=== PATIENT | male | born 1950 | race Caucasian/White ===

== ENCOUNTER 2018-06-24 22:06 | Observation (INO) | payer MEDICARE ==
[~2018-06-24] VITALS: Ht 170.2 cm; Wt 86.8 kg
[~2018-06-24 22:06] MED LIST: ASPIRIN81 MG PO; CLOPIDOGREL75 MG PO; CRESTOR40 MG PO; CURCUMIN1 GM PO; DAILY VITAMIN1 EAC3 PO; GLIMEPIRIDE4 MG PO; INVOKANA PO; JANUMET XR 50-1 EAC1 PO; LANTUS100 UNITS/ SQ; LOVAZA1 GM PO; METOPROLOL TART50 MG PO; RAMIPRIL10 MG PO
[2018-06-24 22:43] LABS: BASOPHILS # (AUTO) 0.1 (0.0-0.1); BASOPHILS % 0.3 % (0.0-1.0); EOSINOPHILS # (AUTO) 0.5 (0.0-0.4); HEMATOCRIT 48.5 % (38.2-49.6); HEMOGLOBIN 16.2 g/dL (14.0-18.0); LYMPHOCYTES # (AUTO) 1.5 (1.0-3.2); LYMPHOCYTES % 10.2 % (18.0-39.1); MEAN CORPUSCULAR HEMOGLOBIN 29.8 pg (28-32); MEAN CORPUSCULAR HGB CONC 33.4 g/dL (31-35); MEAN CORPUSCULAR VOLUME 89.2 fL (81-99); MONOCYTES # (AUTO) 1.1 (0.2-0.8); MONOCYTES % 7.2 % (4.4-11.3); NEUTROPHILS # (AUTO) 11.9 (2.1-6.9); NEUTROPHILS % 78.6 % (38.7-80.0); PLATELET COUNT 247 x10e3/uL (140-360); RED BLOOD COUNT 5.44 x10e6/uL (4.3-5.7); RED CELL DISTRIBUTION WIDTH 13.9 % (11.7-14.4)
[2018-06-24 23:00] LABS: ALBUMIN 4.2 g/dL (3.5-5.0); ALBUMIN/GLOBULIN RATIO 1.4 (0.8-2.0); ANION GAP 19.3 mmol/L (8-16); CALCIUM 10.2 mg/dL (8.4-10.2); CREATININE, SERUM 1.86 mg/dL (0.72-1.25); POTASSIUM 4.3 mmol/L (3.5-5.1)
[2018-06-24] MEDS: SODIUM CHLORIDE 0.9% 1000ML 1,000 ML IV SCH (23:24)
--- NOTE | 2018-06-24 23:40 | NUR ---
REPORT CALLED TO MÓNICA DONALD
[2018-06-24] MEDS ORDERED: TERAZOSIN HCL1 MG PO (23:49)
[2018-06-24] MEDS ORDERED: NITROGLYCERIN0.4 MG SL (23:49)
[2018-06-24] MEDS ORDERED: TRESIBA SC (23:49)
[2018-06-24] MEDS ORDERED: METOPROLOL SUCC50 MG PO (23:49)
[2018-06-25] VITALS (8 sets, daily range): BP systolic 108–150; BP diastolic 55–80
[2018-06-25] MEDS ORDERED: IOPAMIDOL 370 MG/ML 200 ML INFUS..BTL INJ ONE (00:09)
[2018-06-25] MEDS ORDERED: SODIUM CHLORIDE 0.9% 50ML 50 ML ONE (00:09)
--- NOTE | 2018-06-25 00:47 | NUR ---
received pt from ER to room 208, AAOx4, resp even and unlabored, on o2 at 2L via NC, no c/o pain or discomfort, able to verbalize needs, small circular abrasion to anterior right ankle with light center with no drainage or bleeding left ROCHELLE, non blanchable redness to right hallux area on right foot, family at bedside, 20G IV to RAC with NS @ 100, bed in lowest and locked position and call light placed in reach, bed alarm on
--- NOTE | 2018-06-25 01:33 | Diagnostic Imaging Report ---
EXAM: CT Abdomen and Pelvis WITH contrast INDICATION: diarrhea for 2 weeks COMPARISON: None. TECHNIQUE: Abdomen and pelvis were scanned utilizing a multidetector helical scanner from the lung base to the pubic symphysis after administration of IV contrast. Coronal and sagittal reformations were obtained. Routine protocol was performed. Scan was performed when during portal venous phase. IV CONTRAST: 100 mL of Isovue 370 ORAL CONTRAST: Water COMPLICATIONS: None RADIATION DOSE: Total DLP: 639.5 mGy*cm Estimated effective dose: (DLP x 0.015 x size factor) mSv Dose modulation, iterative reconstruction, and/or weight based adjustment of the mA/kV was utilized to reduce the radiation dose to as low as reasonably achievable. FINDINGS: LINES and TUBES: None. LOWER THORAX: Calcified mediastinal and hilar nodes likely related to prior granulomatous disease. Right lower lobe calcified granuloma. HEPATOBILIARY: No focal hepatic lesions. No biliary ductal dilation. GALLBLADDER: No radio-opaque stones or sludge. No wall thickening. SPLEEN: No splenomegaly. PANCREAS: No focal masses or ductal dilatation. ADRENALS: No adrenal nodules KIDNEYS/URETERS: Kidneys enhance symmetrically. No hydronephrosis. No cystic or solid mass lesions. No stones. GI TRACT: No abnormal distention, wall thickening, or evidence of bowel obstruction. Liquid contents within the colon in keeping with history of diarrhea. No colonic wall thickening or pericolonic stranding. Appendix is normal. PELVIC ORGANS/BLADDER: Unremarkable. LYMPH NODES: No lymphadenopathy. VESSELS: There is mild atherosclerotic disease in the aorta and major arterial branches. PERITONEUM / RETROPERITONEUM: No free air or fluid. BONES: Unremarkable. SOFT TISSUES: There is a fat containing right inguinal hernia. IMPRESSION: 1. Liquid contents within the colon in keeping with history of diarrhea. 2. Otherwise, no acute abnormalities. Signed by: DR. Nazario Chacon MD on 06/25/2018 1:30 AM
[2018-06-25 05:29] LABS: BASOPHILS % 0.3 % (0.0-1.0); EOSINOPHILS # (AUTO) 0.4 (0.0-0.4); EOSINOPHILS % 3.5 % (0.0-6.0); HEMATOCRIT 41.6 % (38.2-49.6); HEMOGLOBIN 14.1 g/dL (14.0-18.0); LYMPHOCYTES # (AUTO) 1.2 (1.0-3.2); LYMPHOCYTES % 9.9 % (18.0-39.1); MEAN CORPUSCULAR HEMOGLOBIN 29.9 pg (28-32); MEAN CORPUSCULAR HGB CONC 33.9 g/dL (31-35); MEAN CORPUSCULAR VOLUME 88.3 fL (81-99); MONOCYTES # (AUTO) 1.1 (0.2-0.8); NEUTROPHILS # (AUTO) 9.2 (2.1-6.9); NEUTROPHILS % 76.7 % (38.7-80.0); PLATELET COUNT 214 x10e3/uL (140-360); RED BLOOD COUNT 4.71 x10e6/uL (4.3-5.7); RED CELL DISTRIBUTION WIDTH 13.6 % (11.7-14.4)
[2018-06-25 05:49] LABS: ALBUMIN 3.5 g/dL (3.5-5.0); ALBUMIN/GLOBULIN RATIO 1.3 (0.8-2.0); ANION GAP 16.6 mmol/L (8-16); CALCIUM 9.2 mg/dL (8.4-10.2); CREATININE, SERUM 1.57 mg/dL (0.72-1.25); POTASSIUM 4.6 mmol/L (3.5-5.1)
[2018-06-25 06:01] LABS: CREATINE KINASE MB 3.3 ng/mL (0-5.0)
[2018-06-25 06:02] LABS: BILIRUBIN,URINE NEGATIVE (NEGATIVE); CLARITY,URINE CLEAR (CLEAR); COLOR,URINE YELLOW (YELLOW); KETONES,URINE NEGATIVE (NEGATIVE); LEUKOCYTE ESTERASE ,URINE NEGATIVE (NEGATIVE); NITRITE,URINE NEGATIVE (NEGATIVE); PROTEIN,URINE DIPSTICK NEGATIVE (NEGATIVE); URINE UROBILINOGEN 0.2 mg/dL (0.2 - 1)
[2018-06-25 06:04] LABS: EPITHELIAL CELLS,URINE RARE /LPF; WBC,URINE (MAN) 0-5 /HPF (0-5)
[2018-06-25] MEDS ORDERED: DEXTROSE 50% SYRINGE 50 ML IV PRN (08:45)
[2018-06-25] MEDS: SODIUM CHLORIDE 0.9% 1000ML 1,000 ML IV SCH ×2 (08:50→19:15)
[2018-06-25] MEDS ORDERED: NITROGLYCERIN 0.4 MG SUBL SL PRN (10:30)
--- NOTE | 2018-06-25 10:58 | History and Physical ---
CHIEF COMPLAINT: Generalized weakness and diarrhea. HISTORY OF PRESENT ILLNESS: A 68-year-old white man presents to [facility] emergency room with a 1-day history of nausea, vomiting and diarrhea. The patient states he had similar symptoms 5 days prior to admission, but they resolved spontaneously. The patient states that on the day of admission he did participate in strenuous physical activity, and may not have consumed enough calories. The patient called emergency medical services because he had symptomatic hypoglycemia according to the family members. The patient's lactic acid level was elevated at 24.5, but he is on metformin. BUN and Creatinine on admission was 25 and 1.86 respectively. Repeat BUN and creatinine this morning is 26 and 1.57 respectively, but he is receiving intravenous fluids. The patient was found to have a white blood cell count of 15,000 with 78% segmented neutrophils on admission. Today, it is 12,000 with 76% segmented neutrophils. The CT of the abdomen and pelvis with contrast in the emergency room revealed liquid contents within the colon in keeping with the history of diarrhea, otherwise unremarkable. The patient states he did receive the influenza vaccine this evening. The patient states that a few days ago he did experience body aches, as well as chest congestion and cough. REVIEW OF SYSTEMS GENERAL: Weight has been stable. States he did have fever and chills and body aces the past few days. HEENT: No headaches. No double vision. CARDIOVASCULAR/RESPIRATORY: Slight nonproductive cough in the last few days. No chest pain or tightness. No shortness of breath. GI: The patient had nausea, vomiting and diarrhea on the day of admission, and also 5 days prior to admission. : No UTI or BPH symptoms. NEUROMUSCULAR: No limb weakness, numbness. ALLERGIES: NO KNOWN DRUG ALLERGIES. HOME MEDICATIONS 1. Aspirin 81 mg daily. 2. Glimepiride 4 mg a day. 3. Metoprolol succinate 50 mg daily. 4. Multivitamins once daily. 5. Nitroglycerin 0.4 mg one sublingual every 5 minutes p.r.n. chest pain. 6. [place]-3 fish oil 1 gm daily. 7. Verapamil 10 mg daily. 8. Rosuvastatin 40 mg daily. 9. Sitagliptin per metformin 50 per 1000 mg 2 pills daily. 10. Terazosin 1 mg daily. 11. Tarceva insulin 50 units daily. PAST MEDICAL HISTORY 1. Type 2 diabetes mellitus. 2. 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 3. Dyslipidemia. 4. Vitamin D deficiency. 5. BPH. 6. Hypertensive heart disease. 7. Coronary artery disease (history of coronary stent placement on 4 different occasions). SURGICAL HISTORY 1. Left knee surgery at age 18. 2. Coronary stent placement on 4 separate occasions (2004, 2008, 2010, and 2016). FAMILY HISTORY: Both parents had congestive heart failure. The patient has coronary artery disease. SOCIAL HISTORY: The man is and lives with his . 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 No history of tobacco or alcohol use. PHYSICAL EXAMINATION GENERAL: He is awake, alert and fully oriented. Very pleasant man. His is at bedside. VITALS: Height is 5 feet 7 inches, weight 180 pounds, BMI is 30. Blood pressure is 120/72, pulse 82, respiratory rate 18, temperature 97.1, oxygen saturation 95% on room air. INTEGUMENT: Skin is warm and dry. No pallor, jaundice or diaphoresis. HEENT: Anicteric sclerae with dry mucous membranes. NECK: Supple. CARDIOVASCULAR: Tachycardic rate and regular rhythm. LUNGS: The patient has faint crackles in the bibasilar area. ABDOMEN: Benign. Normal bowel sounds. Nontender. EXTREMITIES: No edema or deformities. NEURO: Intact. IMPRESSION 1. Symptomatic hypoglycemia, resolved. 2. Sepsis secondary to gastroenteritis. 3. Viral syndrome, perhaps influenza. 4. Krwkt-xl-rpogooo renal failure. 5. Type 2 diabetes mellitus. 6. Coronary artery disease. 7. Lactic acidosis likely secondary to metformin use. PLAN 1. Stop metformin for suspicion of lactic acidosis. 2. Will stop ZAMZAM inhibitor at this time since the patient has kfewt-rz-rbizuvq renal failure. 3. Intravenous fluids. 4. Follow renal function. 5. Will order nasal swab to assess for influenza infection. 6. Order chest x-ray. 7. Intravenous antibiotics, namely ceftriaxone. 8. Will as the patient to stop sulfourea, namely glimepiride since this can cause symptomatic hypoglycemia in people over 65 years of age. I spent 45 minutes in the care of this patient. Job#: [id number] [facility] SYSTEMSunita
[2018-06-25] MEDS: INSULIN REGULAR, HUMAN 100 UNIT/1 ML 3ML VIAL SQ SCH ×3 (11:30→20:50)
[2018-06-25] MEDS: CEFTRIAXONE SOD 1 GM/NS 50 ML 50 ML IV SCH ×2 (11:34→22:41)
--- NOTE | 2018-06-25 12:31 | Diagnostic Imaging Report ---
Examination: Single AP view of the chest. COMPARISON: CT abdomen and pelvis earlier 06/25/2018 INDICATION: Cough DISCUSSION: Lungs are well-inflated. No focal consolidation, pleural effusion, or pneumothorax. Cardiomediastinal contour and pulmonary vasculature are within normal limits for portable, AP technique. No acute osseous abnormality. Probable posttraumatic deformity of the left clavicle partially visualized. IMPRESSION: 1. No acute cardiopulmonary abnormalities. Signed by: Dr. Juan Luis Hart M.D. on 06/25/2018 12:27 PM
--- NOTE | 2018-06-25 13:07 | NUR ---
ASSESSMENT: Spiritual concern Pt thankful to God and family. Pt's at bedside. Pt states he is grateful for his 's and daughter's help during illness. Intervention: Provided hospitality, empathic listening and prayer. Provided information on how to reach slat basket maker machine, if needed. Outcome: No need to follow at this time. ASHLEY ALEGRE [employer] Spiritual Care Department O: [phone] Pager: [phone] ([phone] number calling from)
--- NOTE | 2018-06-25 15:49 | NUR ---
CASE MANAGEMENT ASSESSMENT Filer Finish to bedside to discuss plan of care with patient/family. CM/SW role and care transitions discussed. Anticipated discharge plan discussed along with duration of care. CM/SW discussed patients right to make decisions in care. CM/SW work hours given. Patient lives: with Constance Admit/Transfer: thru ED Hospital/ER visits since last admit: last hospitalization Apr 2016 when he had stent placed; 0 ED visits since then POA/Emergency contact: Constance Meyer [phone] Current/Previous Home Health: none PCP/Follow-up Care: Dr. Ware - pt advised to follow up with MD within 7 days of discharge Current/Previous DME: none Medications (referring to index hospitalization or the first time you were in the hospital) a. Were changes made in your medications when you were in the hospital on [date of index hospitalization]? n/a b. Did you understand the changes? n/a c. Were you able to obtain your new medications right away? n/a d. Were you able to take your medications like the doctor wanted you to? n/a e. Did the hospital give you an accurate, easy to understand list of medications when you left? n/a Scale of 1-10 how comfortable does patient feel with disease management in outpatient settin Other Services: none Employment Status: retired Areas of Concerns: none Referral Needs: none Education Needs: none IMM/FAJARDO given and signed (if applicable): FAJARDO Goal for discharge: home tomorrow CM/SW left business card at the bedside with contact information. Name and number was also written on the patients whiteboard. Patient verbalized understanding of discussion. CM will follow-up with ongoing discharge and transition of care needs.
[2018-06-25] MEDS ORDERED: CRESTOR 10MG PO SCH (21:00)
[2018-06-26 00:20] VITALS: BP 133/70
[2018-06-26 05:09] LABS: BASOPHILS % 0.2 % (0.0-1.0); EOSINOPHILS # (AUTO) 0.3 (0.0-0.4); EOSINOPHILS % 3.3 % (0.0-6.0); HEMOGLOBIN 12.9 g/dL (14.0-18.0); LYMPHOCYTES # (AUTO) 2.1 (1.0-3.2); LYMPHOCYTES % 24.5 % (18.0-39.1); MEAN CORPUSCULAR HEMOGLOBIN 29.5 pg (28-32); MEAN CORPUSCULAR HGB CONC 32.3 g/dL (31-35); MEAN CORPUSCULAR VOLUME 91.3 fL (81-99); MONOCYTES # (AUTO) 0.9 (0.2-0.8); MONOCYTES % 10.3 % (4.4-11.3); NEUTROPHILS # (AUTO) 5.3 (2.1-6.9); NEUTROPHILS % 61.4 % (38.7-80.0); PLATELET COUNT 198 x10e3/uL (140-360); RED BLOOD COUNT 4.38 x10e6/uL (4.3-5.7); RED CELL DISTRIBUTION WIDTH 13.9 % (11.7-14.4)
[2018-06-26 05:28] LABS: ALANINE AMINOTRANSFERASE 20 IU/L (0-55); ALBUMIN 3.3 g/dL (3.5-5.0); ALBUMIN/GLOBULIN RATIO 1.3 (0.8-2.0); ALKALINE PHOSPHATASE 73 IU/L (40-150); ANION GAP 14.5 mmol/L (8-16); BLOOD UREA NITROGEN 17 mg/dL (7-26); BUN/CREATININE RATIO 17 (6-25); CALCIUM 8.1 mg/dL (8.4-10.2); CARBON DIOXIDE 20 mmol/L (22-29); CHLORIDE 110 mmol/L (98-107); CREATININE, SERUM 1.03 mg/dL (0.72-1.25); EST GLOMERULAR FILTRATION RATE > 60 ML/MIN (60-); GLUCOSE 236 mg/dL (74-118); POTASSIUM 3.5 mmol/L (3.5-5.1); SODIUM 141 mmol/L (136-145)
[2018-06-26 06:16] VITALS: BP 134/80
[2018-06-26] MEDS ORDERED: POTASSIUM CHLORIDE 10MEQ EA PO ONE (08:00)
[2018-06-26 08:09] VITALS: BP 139/79
[2018-06-26] MEDS: INSULIN REGULAR, HUMAN 100 UNIT/1 ML 3ML VIAL SQ SCH (08:39)
[2018-06-26] MEDS ORDERED: NON-FORMULARY MEDICATION (Rosuvastatin Calcium (Crestor) 40 MG) PO SCH (09:00)
[2018-06-26] MEDS ORDERED: ASPIRIN 81 MG CHEW TAB PO SCH (09:00)
[2018-06-26] MEDS ORDERED: TERAZOSIN HCL 1 MG CAP PO SCH (09:00)
[2018-06-26] MEDS ORDERED: METOPROLOL SUCCINATE 50 MG TAB XL PO SCH (09:00)
[2018-06-26] MEDS ORDERED: TRESIBA 60 UNIT SC SCH (09:00)
--- NOTE | 2018-06-26 09:06 | Discharge Summary ---
ADMIT DIAGNOSES 1. Symptomatic hypoglycemia. 2. Sepsis secondary to gastroenteritis. 3. Viral syndrome. 4. Usicc-dl-yckqhvi renal failure. 5. Type 2 diabetes mellitus. 6. Coronary artery disease. 7. Lactic acidosis secondary to metformin use. DISCHARGE DIAGNOSES 1. Symptomatic hypoglycemia, resolved. 2. Sepsis secondary to gastroenteritis, resolved. 3. Gastroenteritis, resolving. 4. Wddyu-pt-dgpdhwm renal failure, resolved. 5. Stage 2 chronic kidney disease. 6. Type 2 diabetes mellitus. 7. Coronary artery disease. 8. Lactic acidosis secondary to metformin use, resolved. HOSPITAL COURSE: This is a 68-year-old white man who was initially admitted to [facility] with the diagnosis of symptomatic hypoglycemia and sepsis secondary to gastroenteritis. The patient's sepsis improved dramatically with intravenous fluids and ceftriaxone. The patient's hypoglycemia resolved after his glimepiride, metformin and sitagliptin were discontinued. The patient had a nasal swab during this hospitalization, which was negative for influenza A and B antigen. The patient's acute renal failure improved dramatically with intravenous fluids. On admission, the patient's BUN and creatinine was 25 and 1.86 respectively. On discharge, BUN and creatinine was 17 and 1.03. The patient's hypoglycemia resolved during this hospitalization. The patient also had a troponin I on admission, which was negative. The patient's condition on discharge was stable. DISCHARGE MEDICATIONS 1. Rosuvastatin 40 mg at bedtime. 2. Terazosin 1 mg daily. 3. Nitroglycerin 0.4 mg 1 sublingually every 5 minutes p.r.n. chest pain. 4. Metoprolol succinate 50 mg daily. 5. Aspirin 81 mg daily. 6. Ciprofloxacin 500 mg b.i.d. for 5 more days. 7. As previously stated, the patient was told to stop Janumet, which is sitagliptin and metformin. The patient was also instructed to stop glimepiride. FOLLOWUP INSTRUCTIONS: The patient was instructed to follow up with Dr. Hong, namely myself, within 7-10 days. LAURA HONG MD Job#: [id number] [place] cc:NISHA MURCIA MD
--- NOTE | 2018-06-26 09:56 | NUR ---
SPOKE TO DR. HONG. NOTIFIED OF EKG AND TROPONIN LEVEL RESULTS. STATES OK TO D/C HOME.
[2018-06-26] MEDS: CEFTRIAXONE SOD 1 GM/NS 50 ML 50 ML IV SCH (10:15)
== END 2018-06-26 10:23 | disposition home or self-care (01) ==
LOC: ER 22:06 → INTOOBSV 23:46 → ERHOLD 23:46 → MED/SURG2 06-25 00:26
PROVIDERS: ADMIT Internal Medicine; ATTEND Internal Medicine
DX: A41.9 Sepsis, unspecified organism (principal); K52.9 Noninfective gastroenteritis and colitis, unspecified; E11.22 Type 2 diabetes mellitus with diabetic chronic kidney disease; I13.10 Hypertensive heart and chronic kidney disease without heart failure, with stage 1 through stage 4 chronic kidney disease, or unspecified chronic kidney disease; I25.10 Atherosclerotic heart disease of native coronary artery without angina pectoris; Z95.5 Presence of coronary angioplasty implant and graft; N40.0 Benign prostatic hyperplasia without lower urinary tract symptoms; E55.9 Vitamin D deficiency, unspecified; Z79.82 Long term (current) use of aspirin; Z79.84 Long term (current) use of oral hypoglycemic drugs; B34.9 Viral infection, unspecified; N17.9 Acute kidney failure, unspecified; E87.2 Acidosis; E11.649 Type 2 diabetes mellitus with hypoglycemia without coma; N18.2 Chronic kidney disease, stage 2 (mild)
CPT/HCPCS: 36415 ×3; 71045; 74177; 80053 ×3; 81001; 82550; 82553; 82948 ×2; 83605; 84484 ×2; 85025 ×3; 87040; 87400; 93005; 99284; G0378 ×3; J0696 ×2; J1817; J7030 ×2; Q9967

== ENCOUNTER → 2018-09-07 | Day surgery (SDC) | payer MEDICARE ==
[2018-09-04 12:08] LABS: BASOPHILS % 0.3 % (0.0-1.0); EOSINOPHILS # (AUTO) 0.5 (0.0-0.4); EOSINOPHILS % 3.9 % (0.0-6.0); HEMATOCRIT 44.4 % (38.2-49.6); HEMOGLOBIN 14.9 g/dL (14.0-18.0); LYMPHOCYTES # (AUTO) 2.6 (1.0-3.2); LYMPHOCYTES % 22.6 % (18.0-39.1); MEAN CORPUSCULAR HGB CONC 33.6 g/dL (31-35); MEAN CORPUSCULAR VOLUME 89.3 fL (81-99); MONOCYTES # (AUTO) 0.9 (0.2-0.8); MONOCYTES % 8.1 % (4.4-11.3); NEUTROPHILS # (AUTO) 7.6 (2.1-6.9); NEUTROPHILS % 64.8 % (38.7-80.0); PLATELET COUNT 225 x10e3/uL (140-360); RED BLOOD COUNT 4.97 x10e6/uL (4.3-5.7); RED CELL DISTRIBUTION WIDTH 13.5 % (11.7-14.4)
[~2018-09-07] MED LIST changes: +CO Q-10100 MG PO; +FENTANYL CITRATE/PF 100MCG/2 ML INJ ONE; +GLUCAGON FOR INJ 1 MG VIAL ONE; +JANUMET 50-1,01 EACH PO; +LIDOCAINE HCL 2% LOCAL INJ 5 ML SDV VIAL INJ ONE; +LISINOPRIL10 MG PO; +METOPROLOL SUCC50 MG PO; +NITROGLYCERIN0.4 MG SL; +PROPOFOL IV EMULSION 10 MG/ML 50 ML VIAL ONE; +TERAZOSIN HCL1 MG PO; +TRESIBA SC
--- OUTSIDE RECORDS SUMMARY | 2018-09-07 08:36 | XMS REPORT ---
Author Author [facility] Address Unknown Phone Unavailable Care Team Providers [employer] Name Role Phone LAURA HONG Unavailable Unavailable Problems This patient has no known problems. Allergies, Adverse Reactions, Alerts This patient has no known allergies or adverse reactions. Medications This patient has no known medications. Results Test Description Test Time Test Comments Text Results Atomic Results Result Comments CHEST SINGLE (PORTABLE) 2018-06-25 12:26:00 [place] [id number] Patient Name: KAUSHIK BEAN MR #: [id number] : 1950 Age/Sex: 68/M Req #: [id number] Adm Physician: LAURA HONG MD Ordered by: LAURA HONG MD Report #: [id number] Location: [facility]/SURG Room/Bed: [facility] Procedure: [id number] DX/CHEST SINGLE (PORTABLE) Exam Date: 06/25/18 Exam Time: 1130 REPORT STATUS: Signed Examination: Single AP view of the chest. COMP ARISON: CT abdomen and pelvis earlier 06/25/2018 INDICATION: Cough DISCUSSION: Lungs are well-inflated. No focal consolidation, pleural effusion, or pneumothorax. Cardiomediastinal contour and pulmonary vasculature are within normal limits for portable, AP technique. No acute osseous abnormality. Probable posttraumatic deformity of the left clavicle partially visualized. IMPRESSION: 1. No acute cardiopulmonary abnormalities. Signed by: Dr. Barb Hart M.D. on 06/25/2018 12:27 PM Dictated By: BARB HART MD 26 Transcribed By: TERRI on 06/25/187 COPY TO: LAURA HONG MD CT ABDOMEN/PELVIS W 2018-06-25 01:24:00 [place] [id number] Patient Name: KAUSHIK BEAN MR #: [id number] : 1950 Age/Sex: 68/M Req #: [id number] Adm Physician: NATHALIE LLOYD MD Ordered by: DEVONTE BARRON MD Report #: [id number] Location: MED/SURG2 Room/Bed: [facility] Procedure: [id number] CT/CT ABDOMEN/PELVIS W Exam Date: 06/25/18 Exam Time: 0010 REPORT STATUS: Signed EXAM: CT Abdomen and Pelvis WITH contrast INDICA TION: diarrhea for 2 weeks COMPARISON: None. TECHNIQUE: Abdomen and pelvis were scanned utilizing a multidetector helical scanner from the lung base to the pubic symphysis after administration of IV contrast. Coronal and sagittal reformations were obtained. Routine protocol was performed. Scan was performed when during portal venous phase. IV CONTRAST: 100 mL of Isovue 370 ORAL CONTRAST: Water COMPLICATIONS: None RADIATION DOSE: Total DLP: 639.5 mGy*cm Estimated effective dose: (DLP x 0.015 x size factor) mSv Dose modulation, iterative reconstruction, and/or weight based adjustment of the mA/kV was utilized to reduce the radiation dose to as low as reasonably achievable. FINDINGS: LINES and TUBES: None. LOWER THORAX: Calcified mediastinal and hilar nodes likely related to prior granulomatous disease. Right lower lobe calcified granuloma. HEPATOBILIARY: No focal hepatic lesions. No biliary ductal dilation. GALLBLADDER: No radio-opaque stones or sludge. No wall thickening. SPLEEN: No splenomegaly. PANCREAS: No focal masses or ductal dilatation. ADRENALS: No adrenal nodules KIDNEYS/URETERS: Kidneys enhance symmetrically. No hydronephrosis. No cystic or solid mass lesions. No stones. GI TRACT: No abnormal distention, wall thickening, or evidence of bowel obstruction. Liquid contents within the colon in keeping with history of diarrhea. No colonic wall thickening or pericolonic stranding. Appendix is normal. PELVIC ORGANS/BLADDER: Unremarkable. LYMPH NODES: No lymphadenopathy. VESSELS: There is mild atherosclerotic disease in the aorta and major arterial branches. PERITONEUM / RETROPERITONEUM: No free air or fluid. BONES: Unremarkable. SOFT TISSUES: There is a fat containing right inguinal hernia. IMPRESSION: 1. Liquid contents within the colon in keeping with history of diarrhea. 2. Otherwise, no acute abnormalities. Signed by: DR. Nazario Walsh MD on 06/25/2018 1:30 AM Dictated By: NAZARIO WALSH MD 9 Transcribed By: TERRI on 06/25/18129 COPY TO: DEVONTE BARRON MD
[2018-09-07 14:00] VITALS: BP 129/82
--- NOTE | 2018-09-07 21:00 | Operative Report ---
DATE OF PROCEDURE: 09/07/2018 SURGEON: Darek Grijalva MD PROCEDURES: 1. Colonoscopy. 2. Polypectomy. INDICATIONS FOR COLONOSCOPY: Surveillance colonoscopy, personal history of colon polyps. MEDICATIONS: The patient was done under MAC, please see anesthesiologist's note. PROCEDURE IN DETAIL: With the patient in left lateral decubitus position, flexible fiberoptic Olympus colonoscope was inserted into the rectum with ease and advanced all the way to the cecum. The scope was then withdrawn slowly, mucosa overlying the cecum appeared to be within normal limits. Two polyps were snared and two polyps were hot biopsied from the ascending colon. One polypectomy site was hemoclipped. One polyp was hot biopsied from the transverse colon. The descending, sigmoid, and rectum grossly appeared to be within normal limits. The scope was then retroflexed into the distal rectum and prominent nodules were noted at the dentate line and biopsies were obtained. The scope was then straightened out, it was subsequently withdrawn. The patient tolerated the procedure well. IMPRESSION: 1. Ascending colon polyps x4, two snared and two hot biopsied, one site hemoclipped. 2. Transverse colon polyp, hot biopsied. 3. Nodules at dentate line, biopsied. 4. Internal hemorrhoids, none actively bleeding. PLAN: Follow up histology. Initiate high-fiber, low-fat diet. Initiate high-fiber supplement. If the biopsies from the nodules at the dentate line turned out to be of the adenomatous variety, then a repeat colonoscopy resection of these nodules will be carried out. The patient will need a followup colonoscopy in 3 years. Darek Grijalva MD [facility]/ARNEL /[id number] cc: Placido Ware MD
== END | disposition home or self-care (01) ==
LOC: OR 08:28
PROVIDERS: ATTEND Internal Medicine Gastroenterology
DX: Z12.11 Encounter for screening for malignant neoplasm of colon (principal); D12.2 Benign neoplasm of ascending colon; Z86.010 Personal history of colon polyps; K63.5 Polyp of colon; K64.8 Other hemorrhoids; Z01.812 Encounter for preprocedural laboratory examination; I10 Essential (primary) hypertension; K62.89 Other specified diseases of anus and rectum
CPT/HCPCS: 36415 ×2; 45384; 82948; 85025; 88305; J1610; J2001; J2704; 45378; 45385

== ENCOUNTER 2018-12-04 18:38 | Observation (INO) | payer MEDICARE, OTHER ==
[~2018-12-04] VITALS: Ht 170.2 cm; Wt 85.0 kg
[~2018-12-04 18:38] MED LIST changes: -FENTANYL CITRATE/PF 100MCG/2 ML INJ ONE; -GLUCAGON FOR INJ 1 MG VIAL ONE; -LIDOCAINE HCL 2% LOCAL INJ 5 ML SDV VIAL INJ ONE; -PROPOFOL IV EMULSION 10 MG/ML 50 ML VIAL ONE
[2018-12-04] MEDS ORDERED: SODIUM CHLORIDE 0.9% 1000ML 1,000 ML IV ONE (19:00)
[2018-12-04 19:12] LABS: BASOPHILS % 0.2 % (0.0-1.0); EOSINOPHILS # (AUTO) 0.3 (0.0-0.4); EOSINOPHILS % 2.5 % (0.0-6.0); HEMATOCRIT 42.9 % (38.2-49.6); HEMOGLOBIN 14.2 g/dL (14.0-18.0); LYMPHOCYTES # (AUTO) 2.4 (1.0-3.2); LYMPHOCYTES % 17.4 % (18.0-39.1); MEAN CORPUSCULAR HEMOGLOBIN 29.5 pg (28-32); MEAN CORPUSCULAR HGB CONC 33.1 g/dL (31-35); MEAN CORPUSCULAR VOLUME 89.2 fL (81-99); MONOCYTES # (AUTO) 1.3 (0.2-0.8); MONOCYTES % 9.6 % (4.4-11.3); NEUTROPHILS # (AUTO) 9.5 (2.1-6.9); NEUTROPHILS % 69.9 % (38.7-80.0); PLATELET COUNT 240 x10e3/uL (140-360); RED BLOOD COUNT 4.81 x10e6/uL (4.3-5.7); RED CELL DISTRIBUTION WIDTH 14.5 % (11.7-14.4)
--- NOTE | 2018-12-04 19:38 | Diagnostic Imaging Report ---
EXAMINATION: Head CT without contrast. HISTORY:Syncope. COMPARISON:None. TECHNIQUE: Multidetector axial images were obtained from the foramen magnum to the vertex without contrast. The images were reconstructed using brain and bone algorithms. Thin section brain images were reformatted into coronal and sagittal planes. Dose modulation, iterative reconstruction, and/or weight based adjustment of the mA/kV was utilized to reduce the radiation dose to as low as reasonably achievable. Intravenous contrast: None IMAGE QUALITY: Acceptable. FINDINGS: Skull/scalp: No lytic or blastic. lesions. No surgical changes. Parenchyma: Nonspecific few, scattered supratentorial white matter hypodensity are likely related to small vessel ischemic changes. No acute hemorrhage, mass or acute major vascular territorial infarct. Arteries: No density suggestive of thrombosis. Atherosclerotic calcification in bilateral carotid siphon. Dural sinuses: No abnormal density suggestive of thrombosis. Ventricles: No hydrocephalus or displacement. Extra-axial spaces: No abnormal density. Brain volume: Normal for age. Craniocervical junction: No mass, Chiari malformation, or basilar invagination. Sella: No mass. Paranasal/mastoid sinuses: Mild mucosal thickening in left sphenoid and posterior ethmoid sinus. IMPRESSION: No acute intracranial abnormality. Minimal supratentorial white matter microvascular ischemic changes. Signed by: Dr. Jessa Cisneros M.D. on 12/04/2018 7:35 PM
--- NOTE | 2018-12-04 19:41 | Diagnostic Imaging Report ---
EXAMINATION: CHEST SINGLE (PORTABLE) INDICATION: ^SYNCOPE ^[id number] ^1917 ^Y COMPARISON: Chest radiograph 09/11/2006 FINDINGS: AP view TUBES and LINES: None. LUNGS: Lungs are well inflated. Lungs are clear. There is no evidence of pneumonia or pulmonary edema. PLEURA: No pleural effusion or pneumothorax. HEART AND MEDIASTINUM: The cardiac silhouette is prominent. The mediastinum is otherwise unremarkable. BONES AND SOFT TISSUES: No acute osseous lesion. Soft tissues are unremarkable. UPPER ABDOMEN: No free air under the diaphragm. IMPRESSION: No acute thoracic abnormality. Signed by: Dr. Earlene Ricks M.D. on 12/04/2018 7:38 PM
[2018-12-04 19:45] LABS: ALBUMIN/GLOBULIN RATIO 1.2 (0.8-2.0); ANION GAP 22.1 mmol/L (8-16); CALCIUM 10.1 mg/dL (8.4-10.2); CREATININE, SERUM 3.59 mg/dL (0.72-1.25); POTASSIUM 4.1 mmol/L (3.5-5.1)
[2018-12-04 19:52] LABS: CREATINE KINASE MB 4.6 ng/mL (0-5.0)
[2018-12-04] MEDS: SODIUM CHLORIDE 0.9% 1000ML 1,000 ML IV SCH (20:13)
--- NOTE | 2018-12-04 20:13 | NUR ---
PT HAS HAD TOTAL 2L NS BOLUS, 1 PER EMS [employer] AND 1 IN ER, STATES DOES NOT FEEL NEED TO VOID. URINAL GIVEN. NS @ 125CC/HR
[2018-12-04] MEDS ORDERED: [UNRECOGNIZED DRUG - OTHER] PO (20:15)
[2018-12-04] MEDS ORDERED: ONDANSETRON HCL INJ 2MG/ML 2ML 2 MG/ML VIAL IV PRN (21:00)
[2018-12-04] MEDS ORDERED: DEXTROSE 50% SYRINGE 50 ML IV PRN (21:00)
[2018-12-04 21:26] VITALS: BP 121/62
[2018-12-04 21:42] VITALS: BP 121/62
[2018-12-04] MEDS: INSULIN REGULAR, HUMAN 100 UNIT/1 ML 3ML VIAL SQ SCH (22:13)
[2018-12-05 00:20] VITALS: BP 104/51
[2018-12-05] MEDS: SODIUM CHLORIDE 0.9% 1000ML 1,000 ML IV SCH (02:49)
[2018-12-05 02:52] LABS: BILIRUBIN,URINE NEGATIVE (NEGATIVE); CLARITY,URINE SL CLOUDY (CLEAR); COLOR,URINE YELLOW (YELLOW); KETONES,URINE NEGATIVE (NEGATIVE); LEUKOCYTE ESTERASE ,URINE NEGATIVE (NEGATIVE); NITRITE,URINE NEGATIVE (NEGATIVE); PROTEIN,URINE DIPSTICK 1+ (NEGATIVE); URINE UROBILINOGEN 0.2 mg/dL (0.2 - 1)
[2018-12-05 03:21] LABS: BACTERIA,URINE MANY /HPF; EPITHELIAL CELLS,URINE FEW /LPF; MUCUS,URINE FEW (RARE); WBC,URINE (MAN) 21-50 /HPF (0-5)
[2018-12-05 04:13] VITALS: BP 123/78
[2018-12-05 05:24] LABS: BASOPHILS % 0.2 % (0.0-1.0); EOSINOPHILS # (AUTO) 0.3 (0.0-0.4); EOSINOPHILS % 2.3 % (0.0-6.0); HEMOGLOBIN 12.7 g/dL (14.0-18.0); LYMPHOCYTES # (AUTO) 2.4 (1.0-3.2); LYMPHOCYTES % 20.5 % (18.0-39.1); MEAN CORPUSCULAR HEMOGLOBIN 30.2 pg (28-32); MEAN CORPUSCULAR HGB CONC 33.4 g/dL (31-35); MEAN CORPUSCULAR VOLUME 90.3 fL (81-99); MONOCYTES % 8.7 % (4.4-11.3); NEUTROPHILS # (AUTO) 7.9 (2.1-6.9); PLATELET COUNT 208 x10e3/uL (140-360); RED BLOOD COUNT 4.21 x10e6/uL (4.3-5.7); RED CELL DISTRIBUTION WIDTH 14.6 % (11.7-14.4)
[2018-12-05 05:45] LABS: ALBUMIN 3.2 g/dL (3.5-5.0); ANION GAP 17.8 mmol/L (8-16); CALCIUM 8.5 mg/dL (8.4-10.2); CREATININE, SERUM 2.76 mg/dL (0.72-1.25); POTASSIUM 3.8 mmol/L (3.5-5.1)
[2018-12-05 06:11] LABS: CREATINE KINASE MB 3.8 ng/mL (0-5.0)
--- NOTE | 2018-12-05 07:00 | NUR ---
RCD PT AT BED PT IS ALERT AND ORIENTED RESTING ON BED NO SIGNS OF ANY DISTRESS NOTED IV PATENT FAMILY AT BED SIDE BED LOW AND LOCKED CALL LIGHT IN REACH
[2018-12-05] MEDS: INSULIN REGULAR, HUMAN 100 UNIT/1 ML 3ML VIAL SQ SCH (07:30)
[2018-12-05 08:00] VITALS: BP 126/64
--- NOTE | 2018-12-05 08:00 | NUR ---
PT HAVE REDNESS UNDER THE SCROTUM AND GROIN AREA PAGED AND NOTIFIED DR ROMERO GOT NEW ORDERS AND ALSO GOT THE ORDER TO RENEW THE HOME MEDS
[2018-12-05] MEDS ORDERED: NITROGLYCERIN 0.4 MG SUBL SL PRN (08:45)
[2018-12-05] MEDS ORDERED: NYSTATIN 15 GM POWDER UD BTL TOP PRN (08:45)
[2018-12-05 09:00] VITALS: BP 126/64
[2018-12-05] MEDS ORDERED: MULTIVITAMINS/MINERALS TAB PO SCH (09:00)
[2018-12-05] MEDS ORDERED: LISINOPRIL 10 MG TAB PO SCH (09:00)
[2018-12-05] MEDS ORDERED: OMEGA 3 POLYUNSAT FATTY ACIDS 1000 MG SOFTGEL PO SCH (09:00)
[2018-12-05] MEDS ORDERED: METOPROLOL SUCCINATE 50 MG TAB XL PO SCH (09:00)
[2018-12-05] MEDS ORDERED: ASPIRIN 81 MG CHEW TAB PO SCH (09:00)
--- NOTE | 2018-12-05 10:15 | NUR ---
PT REQUESTED TO GO HOME AND FOLLOW UP WITH DR HONG ON FRIDAY SO PAGED DR NICK COOPER NOTIFY THAT
--- NOTE | 2018-12-05 10:43 | NUR ---
DR ROMERO RETURNE CALL GOT THE ORDER TO DISCHARGE
--- NOTE | 2018-12-05 11:25 | NUR ---
PT WENT HOME IN SAFE CONDITION WITH HIS
[2018-12-05] MEDS ORDERED: CRESTOR 10MG PO SCH (21:00)
== END 2018-12-05 11:25 | disposition home or self-care (01) ==
LOC: ER 18:38 → ERHOLD 20:59 → MED/SURG2 21:28
PROVIDERS: ADMIT Internal Medicine; ATTEND Internal Medicine
DX: R55 Syncope and collapse (principal); I10 Essential (primary) hypertension; I25.10 Atherosclerotic heart disease of native coronary artery without angina pectoris; E78.5 Hyperlipidemia, unspecified; E11.9 Type 2 diabetes mellitus without complications; I25.2 Old myocardial infarction; E86.0 Dehydration; N17.9 Acute kidney failure, unspecified
CPT/HCPCS: 36415 ×2; 70450; 71045; 80053 ×2; 81001; 82550 ×2; 82553 ×2; 82948 ×2; 84484 ×2; 85025 ×2; 93005; 99284; G0378 ×2; J1817; J7030

== ENCOUNTER 2019-04-13 19:26 | Inpatient (IN) | payer MEDICARE, OTHER ==
[~2019-04-13] VITALS: Ht 170.2 cm; Wt 84.0 kg
[~2019-04-13 19:26] MED LIST changes: +[UNRECOGNIZED DRUG - OTHER] PO
[2019-04-13] MEDS ORDERED: ONDANSETRON HCL INJ 2MG/ML 2ML 2 MG/ML VIAL IV NR (19:37)
[2019-04-13] MEDS ORDERED: SODIUM CHLORIDE 0.9% 1000ML 1,000 ML IV ONE (19:45)
[2019-04-13] MEDS ORDERED: CEFEPIME 2 GM/NS 0.9% 100 ML 100 ML IV ONE (19:45)
[2019-04-13] MEDS ORDERED: IBUPROFEN 600 MG TAB PO NR (19:45)
[2019-04-13] MEDS ORDERED: ONDANSETRON HCL INJ 2MG/ML 2ML 2 MG/ML VIAL ONE (19:54)
[2019-04-13] MEDS ORDERED: ASPIRIN 81 MG CHEW TAB PO ONE (20:00)
[2019-04-13 20:04] LABS: BASOPHILS # (AUTO) 0.1 (0.0-0.1); BASOPHILS % 0.3 % (0.0-1.0); EOSINOPHILS # (AUTO) 0.4 (0.0-0.4); EOSINOPHILS % 2.7 % (0.0-6.0); HEMATOCRIT 44.6 % (38.2-49.6); HEMOGLOBIN 14.9 g/dL (14.0-18.0); LYMPHOCYTES # (AUTO) 1.8 (1.0-3.2); LYMPHOCYTES % 11.6 % (18.0-39.1); MEAN CORPUSCULAR HEMOGLOBIN 29.4 pg (28-32); MEAN CORPUSCULAR HGB CONC 33.4 g/dL (31-35); MONOCYTES # (AUTO) 1.1 (0.2-0.8); MONOCYTES % 7.3 % (4.4-11.3); NEUTROPHILS # (AUTO) 11.9 (2.1-6.9); NEUTROPHILS % 77.8 % (38.7-80.0); PLATELET COUNT 241 x10e3/uL (140-360); RED BLOOD COUNT 5.07 x10e6/uL (4.3-5.7); RED CELL DISTRIBUTION WIDTH 13.9 % (11.7-14.4)
[2019-04-13 20:14] LABS: INR 0.95; PARTIAL THROMBOPLASTIN TIME 26.5 seconds (23.8-35.5); PROTHROMBIN TIME 13.2 seconds (11.9-14.5)
[2019-04-13 20:21] LABS: ALANINE AMINOTRANSFERASE 20 IU/L (0-55); ALBUMIN 3.6 g/dL (3.5-5.0); ALKALINE PHOSPHATASE 80 IU/L (40-150); ANION GAP 16.7 mmol/L (8-16); BLOOD UREA NITROGEN 15 mg/dL (7-26); BUN/CREATININE RATIO 13 (6-25); CALCIUM 9.5 mg/dL (8.4-10.2); CARBON DIOXIDE 23 mmol/L (22-29); CHLORIDE 98 mmol/L (98-107); CREATININE, SERUM 1.12 mg/dL (0.72-1.25); EST GLOMERULAR FILTRATION RATE > 60 ML/MIN (60-); GLUCOSE 270 mg/dL (74-118); POTASSIUM 3.7 mmol/L (3.5-5.1); SODIUM 134 mmol/L (136-145)
[2019-04-13 20:21] LABS: BILIRUBIN,URINE NEGATIVE (NEGATIVE); CLARITY,URINE SL CLOUDY (CLEAR); COLOR,URINE YELLOW (YELLOW); KETONES,URINE NEGATIVE (NEGATIVE); LEUKOCYTE ESTERASE ,URINE NEGATIVE (NEGATIVE); NITRITE,URINE NEGATIVE (NEGATIVE); PROTEIN,URINE DIPSTICK 1+ (NEGATIVE); URINE UROBILINOGEN 0.2 mg/dL (0.2 - 1)
[2019-04-13 20:22] LABS: STREPTOCOCCUS GRP A ANTIGEN NEGATIVE (NEGATIVE)
[2019-04-13 20:26] LABS: INFLUENZAE A&B ANTIGEN (RAPID) NEGATIVE (NEGATIVE)
[2019-04-13 20:28] LABS: CREATINE KINASE MB 1.3 ng/mL (0-5.0)
[2019-04-13 20:38] LABS: EPITHELIAL CELLS,URINE RARE /LPF; WBC,URINE (MAN) 0-5 /HPF (0-5)
--- NOTE | 2019-04-13 20:39 | Diagnostic Imaging Report ---
EXAMINATION: CHEST SINGLE (PORTABLE) INDICATION: Fever, cough. COMPARISON: Chest radiograph 12/04/2018. FINDINGS: TUBES and LINES: None. LUNGS: Low lung volumes which decreases sensitivity and specificity for pathology. Central vascular congestion with interstitial opacities. Mild patchy opacity in the left mid to lower lung zones. PLEURA: No pleural effusion or pneumothorax. HEART AND MEDIASTINUM: The cardiomediastinal silhouette is unremarkable. BONES AND SOFT TISSUES: No acute osseous abnormality. UPPER ABDOMEN: No free air under the diaphragm. IMPRESSION: Low lung volumes, cannot exclude mild pulmonary interstitial edema. Patchy opacities in the left mid and and bilateral lower lung zones may reflect atelectasis or pneumonia in the appropriate clinical setting. Signed by: Dr. Destin Sneed MD on 04/13/2019 8:35 PM
[2019-04-13] MEDS ORDERED: AZITHROMYCIN 500MG/NS 250 ML 250 ML IV STA (20:46)
[2019-04-13] MEDS ORDERED: DEXTROSE 50% SYRINGE 50 ML IV PRN (21:15)
[2019-04-13] MEDS ORDERED: ONDANSETRON HCL INJ 2MG/ML 2ML 2 MG/ML VIAL IV PRN (21:15)
[2019-04-13] MEDS ORDERED: AZITHROMYCIN 500MG/SOD CHL 0.9% 250ML BAG IV SCH (21:15)
[2019-04-13] MEDS: ALBUTEROL SULF 0.083% NEB SOLN 3 ML NEB NEB SCH (21:15)
[2019-04-13] MEDS ORDERED: CEFEPIME HCL 2 GM/SOD CHL 0.9% 100 ML BAG IV SCH (22:00)
[2019-04-13] MEDS: SODIUM CHLORIDE 0.9% 1000ML 1,000 ML IV SCH (22:00)
[2019-04-14] VITALS (9 sets, daily range): BP systolic 127–153; BP diastolic 60–72
--- NOTE | 2019-04-14 00:20 | NUR ---
Patient received via stretcher from ER accompanied by . AAO x 4. Patient had no complaints of pain. Respirations even and non-labored on 2L NC. IVF infusing at 125 cc/hr. Admission history obtained. Initial physical assessment performed. Patient oriented to room, call light , visiting hours and plan of care. Patient instructed to call for assistance when needed. Call light within reach.
[2019-04-14] MEDS: AZITHROMYCIN 500MG/NS 250 ML 250 ML IV SCH ×2 (00:33→21:59)
[2019-04-14] MEDS: CEFEPIME 2 GM/NS 0.9% 100 ML 100 ML IV SCH ×4 (00:33→23:00)
[2019-04-14] MEDS: IPRATROPIUM BROMIDE 0.02% 2.5 ML NEB NEB SCH ×5 (00:45→19:05)
[2019-04-14] MEDS: ALBUTEROL SULF 0.083% NEB SOLN 3 ML NEB NEB SCH ×7 (00:45→23:30)
[2019-04-14 04:15] LABS: BASOPHILS % 0.2 % (0.0-1.0); EOSINOPHILS # (AUTO) 0.2 (0.0-0.4); HEMATOCRIT 39.1 % (38.2-49.6); HEMOGLOBIN 12.9 g/dL (14.0-18.0); LYMPHOCYTES # (AUTO) 2.3 (1.0-3.2); LYMPHOCYTES % 12.6 % (18.0-39.1); MEAN CORPUSCULAR HEMOGLOBIN 29.3 pg (28-32); MEAN CORPUSCULAR VOLUME 88.9 fL (81-99); MONOCYTES # (AUTO) 1.5 (0.2-0.8); NEUTROPHILS # (AUTO) 14.3 (2.1-6.9); NEUTROPHILS % 77.8 % (38.7-80.0); RED CELL DISTRIBUTION WIDTH 13.9 % (11.7-14.4)
[2019-04-14 04:25] LABS: PLATELET COUNT 201 x10e3/uL (140-360)
[2019-04-14 04:51] LABS: ALANINE AMINOTRANSFERASE 16 IU/L (0-55); ALBUMIN 2.9 g/dL (3.5-5.0); ALBUMIN/GLOBULIN RATIO 0.9 (0.8-2.0); ALKALINE PHOSPHATASE 59 IU/L (40-150); ANION GAP 14.5 mmol/L (8-16); BLOOD UREA NITROGEN 17 mg/dL (7-26); BUN/CREATININE RATIO 15 (6-25); CARBON DIOXIDE 20 mmol/L (22-29); CHLORIDE 104 mmol/L (98-107); CREATINE KINASE MB 1.7 ng/mL (0-5.0); EST GLOMERULAR FILTRATION RATE > 60 ML/MIN (60-); GLUCOSE 333 mg/dL (74-118); POTASSIUM 3.5 mmol/L (3.5-5.1); SODIUM 135 mmol/L (136-145)
[2019-04-14] MEDS: SODIUM CHLORIDE 0.9% 1000ML 1,000 ML IV SCH ×3 (05:13→21:13)
[2019-04-14] MEDS: INSULIN REGULAR, HUMAN 100 UNIT/1 ML 3ML VIAL SQ SCH ×4 (07:48→21:00)
[2019-04-14] MEDS ORDERED: NITROGLYCERIN 0.4 MG SUBL SL PRN (09:30)
--- NOTE | 2019-04-14 10:21 | History and Physical ---
CHIEF COMPLAINT: Cough and fatigue. HISTORY OF PRESENT ILLNESS: This is a 68-year-old white man, who presents to [facility] with a 3 to 4 day history of fatigue and chest congestion. The patient states that two days prior to admission, his cough became worse. In the emergency room, the patient was found to have a white blood cell count of 15,200 with 77% segmented neutrophils. The patient had chest x-ray done in the emergency room that revealed patchy opacities in the left mid and bilateral lower lung zones. Also in the emergency room, the patient was found to have BUN and creatinine of 17 and 1.1% respectively. The patient's serum bicarbonate is low at 20. The patient's cardiac enzymes have been negative, namely troponin I. The patient denies any chest pain or tightness. REVIEW OF SYSTEMS: GENERAL: Weight is stable. He has had fever the past couple days. No chills. HEENT: No headaches. No vision changes. CARDIOVASCULAR: NO chest pain or tightness, but he has had cough and chest congestion in the past few days, worse in the last two days. GASTROINTESTINAL: No nausea, vomiting, or constipation. GENITOURINARY: The patient urinates frequently. NEUROMUSCULAR: Denies any limb weakness or numbness. ALLERGIES: NO KNOWN DRUG ALLERGIES. PAST MEDICAL HISTORY: 1. Type 2 diabetes mellitus. 2. 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 3. Dyslipidemia. 4. Vitamin D deficiency. 5. Benign prostatic hypertrophy. 6. Hypertensive heart disease. 7. Coronary artery disease (history of coronary stent placement on four different occasions, the last one was in 2016). PAST SURGICAL HISTORY: 1. Left knee surgery at age 18. 2. Coronary stent placement for separate occasions (2004, 2008, 2010, 2015). FAMILY HISTORY: Both parents had congestive heart failure. SOCIAL HISTORY: This man is . He lives with his . 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 No history of tobacco or alcohol use. MEDICATIONS: Home medications: 1. Aspirin 81 mg daily. 2. Lisinopril 20 mg daily. 3. Metoprolol succinate 50 mg daily. 4. Multivitamin daily. 5. Nitroglycerin 0.4 mg 1 sublingual every 5 minutes p.r.n. chest pain. 6. Mchenry-3 fish oil 1000 mg daily. 7. Rosuvastatin 40 mg at bedtime. 8. Sitagliptin/metformin one b.i.d. 9. Coenzyme Q10 100 mg daily. 10. Tresiba insulin 100 units subcutaneous daily. PHYSICAL EXAMINATION: GENERAL: He is awake, alert. He is in no distress. Very pleasant. VITAL SIGNS: Height 5 feet 7 inches, weight 187 pounds, and BMI 29. Blood pressure is 133/70, pulse 76, respiratory rate 18, temperature 97.1, and oxygen 95% on room air. Temperature in the emergency room was 102.4. INTEGUMENT: Skin is warm and dry. No pallor, jaundice, diaphoresis. HEENT: Anterior sclerae with moist mucous membranes. NECK: Supple. CARDIOVASCULAR: Distant heart sounds. Regular rate and rhythm. LUNGS: The patient has crackles in the bilateral lung gray, worse in the right. ABDOMEN: Benign. EXTREMITIES: No edema or deformity. NEUROLOGIC: Intact. DIAGNOSES: 1. Bilateral pneumonia, likely gram-negative jamison. 2. Coronary artery disease (history of coronary stent placement on four separate occasions, last one in the L[facility] in 2015). 3. Type 2 diabetes mellitus. PLAN: 1. Follow blood cultures. 2. Intravenous antibiotics. 3. Nebulized bronchodilators. 4. Blood glucose control. 5. Order 2D echocardiogram. 6. Check B-type natriuretic peptide level to assess for intravascular volume overload. I spent 45 minutes in the care of this patient. MD VALERIA Carney/ARNEL /[id number]
[2019-04-14] MEDS: LISINOPRIL 20 MG TAB PO SCH (11:45)
[2019-04-14] MEDS: ASPIRIN 81 MG CHEW TAB PO SCH (11:45)
[2019-04-14] MEDS: MULTIVITAMINS/MINERALS TAB PO SCH (11:45)
[2019-04-14] MEDS: VANCOMYCIN 1GM/NS 250 ML 250 ML IV SCH ×2 (11:45→22:00)
[2019-04-14] MEDS: METOPROLOL SUCCINATE 50 MG TAB XL PO SCH (12:14)
[2019-04-14 15:15] LABS: CREATINE KINASE MB 1.9 ng/mL (0-5.0)
[2019-04-14] MEDS: ACETAMINOPHEN 325 MG TAB PO PRN (16:23)
[2019-04-14] MEDS: METFORMIN HCL 500 MG TAB PO SCH (16:44)
[2019-04-14] MEDS: SITAGLIPTIN 100 MG TAB PO SCH (16:44)
[2019-04-14] MEDS ORDERED: NON-FORMULARY MEDICATION (Sitagliptin Phos/Metformin Hcl (Janumet 50-1,000 Mg Tablet) 1 TA PO SCH (17:00)
[2019-04-14] MEDS: CRESTOR 10MG PO SCH (21:00)
[2019-04-14] MEDS: TRESIBA 100 UNIT SC SCH (21:00)
--- NOTE | 2019-04-14 23:25 | NUR ---
Patient complained of non-productive cough affecting his sleep. Dr. Ware paged. Awaiting call back.
--- NOTE | 2019-04-14 23:35 | NUR ---
New order received from Dr. Ware for patient's cough---Robitussin AC , 1 teaspoon Q4H PRN.
[2019-04-15] VITALS (8 sets, daily range): BP systolic 129–171; BP diastolic 60–100
[2019-04-15] MEDS: GUAIFENESIN/CODEINE 10 ML CUP PO PRN ×4 (00:27→13:51)
[2019-04-15] MEDS: IPRATROPIUM BROMIDE 0.02% 2.5 ML NEB NEB SCH ×5 (03:06→23:45)
[2019-04-15] MEDS: ALBUTEROL SULF 0.083% NEB SOLN 3 ML NEB NEB SCH ×6 (03:06→23:45)
[2019-04-15] MEDS: SODIUM CHLORIDE 0.9% 1000ML 1,000 ML IV SCH ×2 (05:13→13:13)
[2019-04-15 05:31] LABS: BASOPHILS % 0.1 % (0.0-1.0); EOSINOPHILS # (AUTO) 0.3 (0.0-0.4); EOSINOPHILS % 2.3 % (0.0-6.0); HEMATOCRIT 38.3 % (38.2-49.6); HEMOGLOBIN 12.3 g/dL (14.0-18.0); LYMPHOCYTES # (AUTO) 1.7 (1.0-3.2); MEAN CORPUSCULAR HEMOGLOBIN 29.1 pg (28-32); MEAN CORPUSCULAR HGB CONC 32.1 g/dL (31-35); MEAN CORPUSCULAR VOLUME 90.5 fL (81-99); MONOCYTES # (AUTO) 0.9 (0.2-0.8); MONOCYTES % 6.4 % (4.4-11.3); NEUTROPHILS % 78.6 % (38.7-80.0); PLATELET COUNT 200 x10e3/uL (140-360); RED BLOOD COUNT 4.23 x10e6/uL (4.3-5.7); RED CELL DISTRIBUTION WIDTH 13.9 % (11.7-14.4)
[2019-04-15] MEDS: CEFEPIME 2 GM/NS 0.9% 100 ML 100 ML IV SCH ×2 (05:50→14:44)
[2019-04-15 06:00] LABS: ANION GAP 15.6 mmol/L (8-16); BLOOD UREA NITROGEN 9 mg/dL (7-26); BUN/CREATININE RATIO 11 (6-25); CALCIUM 8.5 mg/dL (8.4-10.2); CARBON DIOXIDE 21 mmol/L (22-29); CHLORIDE 106 mmol/L (98-107); CREATININE, SERUM 0.84 mg/dL (0.72-1.25); EST GLOMERULAR FILTRATION RATE > 60 ML/MIN (60-); GLUCOSE 200 mg/dL (74-118); POTASSIUM 3.6 mmol/L (3.5-5.1); SODIUM 139 mmol/L (136-145)
--- NOTE | 2019-04-15 07:00 | NUR ---
Received patient lying in bed with eyes open, respiration even and unlabored without SOB. Call light in reach.
--- NOTE | 2019-04-15 07:00 | NUR ---
Patient resting comfortably. Shift report given to oncoming nurse.
[2019-04-15] MEDS: METFORMIN HCL 500 MG TAB PO SCH ×2 (08:04→18:19)
[2019-04-15] MEDS: OMEGA 3 POLYUNSAT FATTY ACIDS 1000 MG SOFTGEL PO SCH (08:05)
[2019-04-15] MEDS: ASPIRIN 81 MG CHEW TAB PO SCH (08:05)
[2019-04-15] MEDS: MULTIVITAMINS/MINERALS TAB PO SCH (08:05)
[2019-04-15] MEDS: VANCOMYCIN 1GM/NS 250 ML 250 ML IV SCH ×2 (08:05→23:57)
[2019-04-15] MEDS: SITAGLIPTIN 100 MG TAB PO SCH ×2 (08:05→18:19)
[2019-04-15] MEDS: METOPROLOL SUCCINATE 50 MG TAB XL PO SCH (08:06)
[2019-04-15] MEDS: LISINOPRIL 20 MG TAB PO SCH (08:06)
[2019-04-15] MEDS: INSULIN REGULAR, HUMAN 100 UNIT/1 ML 3ML VIAL SQ SCH ×4 (08:07→22:14)
[2019-04-15] MEDS ORDERED: LISINOPRIL 10 MG TAB PO SCH (09:00)
[2019-04-15] MEDS: [UNRECOGNIZED DRUG - OTHER] PO SCH (09:00)
[2019-04-15] MEDS ORDERED: MULTIVITAMIN PO SCH (09:00)
[2019-04-15] MEDS ORDERED: NON-FORMULARY MEDICATION (Rosuvastatin Calcium (Crestor) 40 MG) PO SCH (09:00)
[2019-04-15] MEDS: (Ubidecarenone (Co Q-10) 1 CAP) PO SCH (09:00)
--- NOTE | 2019-04-15 13:00 | NUR ---
Non-working PIV to Left and Right AC discontinued, catheter tips intact, no bleeding noted. Started a new IV 20G to left forearm.
[2019-04-15] MEDS: BENZONATATE 100 MG CAP PO SCH ×2 (14:56→20:39)
[2019-04-15] MEDS: ACETAMINOPHEN 325 MG TAB PO PRN (16:08)
--- NOTE | 2019-04-15 18:55 | NUR ---
Report given to cook night. Respiration even and unlabored without SOB. Spouse at bedside. Call light in reach.
--- NOTE | 2019-04-15 19:00 | NUR ---
RECEIVED PATIENT IN BEDSIDE REPORT. PATIENT RESTING IN BED AT THIS TIME, FAMILY MEMBER AT BEDSIDE. NO PAIN REPORTED. NO S&S OF DISTRESS NOTED. PATIENT STATES HE BARELY SLEPT LAST NIGHT, WILL ADMINISTER PRN INSOMNIA MEDS WHEN PATIENT IS READY FOR BED. SOME COUGHING NOTED. STEADY GAIT NOTED PATIENT AMBULATED. WILL CONTINUE TO MONITOR. BED LOCKED IN LOWEST POSITION, SIDE RAILS UPX2, CALL LIGHT IN REACH.
[2019-04-15] MEDS: CRESTOR 10MG PO SCH (20:39)
[2019-04-15] MEDS: DIPHENHYDRAMINE HCL 25 MG CAP PO PRN (20:39)
[2019-04-15] MEDS: AZITHROMYCIN 500MG/NS 250 ML 250 ML IV SCH (20:39)
[2019-04-15] MEDS: TRESIBA 100 UNIT SC SCH (21:00)
[2019-04-16] VITALS (9 sets, daily range): BP systolic 151–203; BP diastolic 69–97
[2019-04-16] MEDS: GUAIFENESIN/CODEINE 10 ML CUP PO PRN ×2 (00:06→06:32)
[2019-04-16] MEDS: ALBUTEROL SULF 0.083% NEB SOLN 3 ML NEB NEB SCH ×6 (03:00→23:45)
[2019-04-16] MEDS: CEFEPIME 2 GM/NS 0.9% 100 ML 100 ML IV SCH ×3 (03:48→20:12)
--- NOTE | 2019-04-16 04:37 | NUR ---
PATIENT REQUESTED SOMETHING TO HELP HIM KEEP ARM STRAIGHT SO IV FLUIDS AND ABX CAN RUN. PLACEMENT OF IV IN L AC CAUSING PUMP TO STOP FREQUENTLY, DELAYING ADMINISTRATION OF ANTIBIOTICS. PLACED ARM BOARD UNDER ELBOW, HELD IN PLACE BY COBAN TAPE. PATIENT STATED IT WAS NOT TOO TIGHT AND COMFORTABLE. WILL MONITOR CLOSELY.
[2019-04-16] MEDS: SODIUM CHLORIDE 0.9% 1000ML 1,000 ML IV SCH ×4 (05:13→23:47)
[2019-04-16 05:47] LABS: BASOPHILS % 0.2 % (0.0-1.0); EOSINOPHILS # (AUTO) 0.6 (0.0-0.4); EOSINOPHILS % 3.9 % (0.0-6.0); HEMATOCRIT 36.6 % (38.2-49.6); HEMOGLOBIN 11.7 g/dL (14.0-18.0); LYMPHOCYTES # (AUTO) 1.6 (1.0-3.2); LYMPHOCYTES % 10.9 % (18.0-39.1); MEAN CORPUSCULAR HEMOGLOBIN 29.2 pg (28-32); MEAN CORPUSCULAR VOLUME 91.3 fL (81-99); MONOCYTES # (AUTO) 0.8 (0.2-0.8); MONOCYTES % 5.2 % (4.4-11.3); NEUTROPHILS % 79.4 % (38.7-80.0); PLATELET COUNT 195 x10e3/uL (140-360); RED BLOOD COUNT 4.01 x10e6/uL (4.3-5.7); RED CELL DISTRIBUTION WIDTH 13.9 % (11.7-14.4)
[2019-04-16 06:04] LABS: ANION GAP 15.7 mmol/L (8-16); BLOOD UREA NITROGEN 8 mg/dL (7-26); BUN/CREATININE RATIO 10 (6-25); CALCIUM 8.7 mg/dL (8.4-10.2); CARBON DIOXIDE 17 mmol/L (22-29); CHLORIDE 108 mmol/L (98-107); EST GLOMERULAR FILTRATION RATE > 60 ML/MIN (60-); GLUCOSE 124 mg/dL (74-118); POTASSIUM 3.7 mmol/L (3.5-5.1); SODIUM 137 mmol/L (136-145)
--- NOTE | 2019-04-16 06:56 | NUR ---
Received patient sitting on bedside recliner with eyes open. Respiration even and unlabored without SOB. Call light in reach.
--- NOTE | 2019-04-16 06:56 | NUR ---
Received patient lying in bed with eyes open. Respiration even and unlabored without SOB. Call light in reach. Right groin dressing intact, no bleeding , no hematoma noted. Addendum: 04/16/19 at 0804 by Marleen Hogan RN Wrong patient note
--- NOTE | 2019-04-16 06:56 | NUR ---
Received patient lying in bed with eyes open. Respiration even and unlabored without SOB. Call light in reach.
[2019-04-16] MEDS: IPRATROPIUM BROMIDE 0.02% 2.5 ML NEB NEB SCH ×4 (07:20→23:45)
[2019-04-16] MEDS: INSULIN REGULAR, HUMAN 100 UNIT/1 ML 3ML VIAL SQ SCH ×4 (07:30→20:21)
--- NOTE | 2019-04-16 08:10 | Diagnostic Imaging Report ---
Chest, portable AP view History: Pneumonia Comparison: 04/13/2019 IMPRESSION: The heart is within normal limits of size. Patchy opacities are identified in the right infrahilar region and retrocardiac regions which may be secondary to pneumonitis. No sizable pleural effusion. No pneumothorax. Signed by: Brooks Carranza MD on 04/16/2019 8:07 AM
[2019-04-16] MEDS: METFORMIN HCL 500 MG TAB PO SCH ×2 (08:17→16:27)
[2019-04-16] MEDS: ASPIRIN 81 MG CHEW TAB PO SCH (08:18)
[2019-04-16] MEDS: [UNRECOGNIZED DRUG - OTHER] PO SCH (08:18)
[2019-04-16] MEDS: MULTIVITAMINS/MINERALS TAB PO SCH (08:18)
[2019-04-16] MEDS: OMEGA 3 POLYUNSAT FATTY ACIDS 1000 MG SOFTGEL PO SCH (08:18)
[2019-04-16] MEDS: (Ubidecarenone (Co Q-10) 1 CAP) PO SCH (08:18)
[2019-04-16] MEDS: SITAGLIPTIN 100 MG TAB PO SCH ×2 (08:18→16:27)
[2019-04-16] MEDS: VANCOMYCIN 1GM/NS 250 ML 250 ML IV SCH ×2 (08:18→21:23)
[2019-04-16] MEDS: METOPROLOL SUCCINATE 50 MG TAB XL PO SCH (08:19)
[2019-04-16] MEDS: LISINOPRIL 20 MG TAB PO SCH ×2 (08:19→20:14)
[2019-04-16] MEDS: BENZONATATE 100 MG CAP PO SCH ×3 (08:19→21:24)
[2019-04-16] MEDS: GUAIFENESIN 600MG/DEXTROMETHORPHAN 30MG TABSR PO SCH ×2 (12:32→21:23)
--- NOTE | 2019-04-16 14:03 | NUR ---
EDUCATED ABOUT IMM, SIGNED, FILED IN CHART, WITH COPY LEFT WITH FAMILY AT BEDSIDE.
--- NOTE | 2019-04-16 19:28 | NUR ---
Report given to assistant casino shift manager. Patient lying in bed with eyes open. Respiration even and unlabored without SOB. Call light in reach
[2019-04-16] MEDS: ACETAMINOPHEN 325 MG TAB PO PRN (19:46)
--- NOTE | 2019-04-16 19:48 | NUR ---
patient complaints of headache, Tylenol p.o given. BP checked 203/97, HR 82, paged Dr. Ware thru answering service awaiting call back.
--- NOTE | 2019-04-16 19:52 | NUR ---
Spoke to Dr. Ware, updated re patient BP, with orders to increase Lisinopril 20mg 1 tab to BID, give 1 dose tonight and [place] 5/325 1 tab as needed at bedtime per daughter's request
[2019-04-16] MEDS ORDERED: HYDROCODONE/APAP 5MG-325MG TAB PO PRN (20:00)
[2019-04-16] MEDS ORDERED: LISINOPRIL 20 MG TAB PO ONE (20:00)
--- NOTE | 2019-04-16 20:00 | NUR ---
blood sugar checked 166, patient is alert, daughter at bedside
--- NOTE | 2019-04-16 20:20 | NUR ---
BS rechecked 200
[2019-04-16] MEDS: TRESIBA 100 UNIT SC SCH (21:00)
--- NOTE | 2019-04-16 21:06 | NUR ---
BP rechecked 188/86, HR 88, head feeling better, patient is watching on his Ipad. Will continue to monitor closely
[2019-04-16] MEDS: CRESTOR 10MG PO SCH (21:23)
[2019-04-16] MEDS: AZITHROMYCIN 500MG/NS 250 ML 250 ML IV SCH (22:30)
[2019-04-17] VITALS (31 sets, daily range): BP systolic 78–192; BP diastolic 50–92
[2019-04-17] MEDS: ALBUTEROL SULF 0.083% NEB SOLN 3 ML NEB NEB SCH ×7 (03:05→22:52)
[2019-04-17] MEDS: CEFEPIME 2 GM/NS 0.9% 100 ML 100 ML IV SCH (03:36)
--- NOTE | 2019-04-17 04:30 | NUR ---
Patient went to the bathroom to pee, went back to bed short of breath, patient on 02 support at 4L/NC, called RT to assess patient, neb treatment given sat 97%, no relieved. Called rapid, Dr. Rios came and the team. Patient was intubated
[2019-04-17] MEDS: SODIUM CHLORIDE 0.9% 1000ML 1,000 ML IV SCH ×2 (05:13→13:13)
[2019-04-17] MEDS ORDERED: PROPOFOL IV EMULSION 10MG/ML 100 ML IV PRN (05:15)
[2019-04-17] MEDS ORDERED: FUROSEMIDE INJ 10 MG/ML 4 ML VIAL ONE (05:21)
--- NOTE | 2019-04-17 05:30 | NUR ---
Called Dr. Ware, updated of the patient's condition
[2019-04-17 05:43] LABS: BASOPHILS # (AUTO) 0.1 (0.0-0.1); BASOPHILS % 0.4 % (0.0-1.0); EOSINOPHILS # (AUTO) 1.1 (0.0-0.4); EOSINOPHILS % 3.8 % (0.0-6.0); HEMOGLOBIN 14.4 g/dL (14.0-18.0); LYMPHOCYTES # (AUTO) 6.7 (1.0-3.2); LYMPHOCYTES % 23.5 % (18.0-39.1); MEAN CORPUSCULAR HEMOGLOBIN 29.8 pg (28-32); MONOCYTES # (AUTO) 2.2 (0.2-0.8); MONOCYTES % 7.8 % (4.4-11.3); NEUTROPHILS # (AUTO) 18.1 (2.1-6.9); NEUTROPHILS % 63.6 % (38.7-80.0); PLATELET COUNT 333 x10e3/uL (140-360); RED BLOOD COUNT 4.84 x10e6/uL (4.3-5.7); RED CELL DISTRIBUTION WIDTH 14.1 % (11.7-14.4)
[2019-04-17 05:53] LABS: INR 0.96; PROTHROMBIN TIME 13.3 seconds (11.9-14.5)
--- NOTE | 2019-04-17 06:00 | NUR ---
Patient went down to radiology, then transferred to ICU for higher level of care
[2019-04-17 06:07] LABS: CREATINE KINASE MB 1.8 ng/mL (0-5.0)
--- NOTE | 2019-04-17 06:10 | NUR ---
Patient was transferred to ICU bed 193, report given to Juaquin SALES
--- NOTE | 2019-04-17 06:52 | Diagnostic Imaging Report ---
History:Post intubation Comparison studies:CT head 12/04/18 Technique: Axial images were obtained from the skull base to the vertex. Coronal and sagittal images reconstructed from the axial data. Intravenous contrast: None Dose modulation, iterative reconstruction, and/or weight based adjustment of the mA/kV was utilized to reduce the radiation dose to as low as reasonably achievable. Findings: Scalp/skull: No abnormalities. Extra-axial spaces: No masses. No fluid collections. Brain sulci: Age appropriate. Ventricles: Age appropriate. No hydrocephalus. Parenchyma: Subtle few hypodensities in the supratentorial white matter are mildsmall vessel ischemic changes. No masses, hemorrhage, acute or chronic cortical vascular insults. Sellar/suprasellar region: No abnormalities. Craniocervical junction: Patent foramen magnum. No Chiari one malformation. Incidental findings: Atherosclerotic calcifications in the carotid siphons . Impression: No acute abnormalities. Stable. Signed by: DR Chalo Graham M.D. on 04/17/2019 6:49 AM
[2019-04-17 07:06] LABS: ANISOCYTOSIS SLIGHT; EOSINOPHILS % (MANUAL) 4 % (0-7); LYMPHOCYTES % (MANUAL) 27 % (19-48); MONOCYTES % (MANUAL) 6 % (3.4-9.0); NEUTROPHILS % (MANUAL) 62 % (40-74); PLATELET ESTIMATE ADEQUATE; PLATELET MORPHOLOGY COMMENT NORMAL; RBC MORPHOLOGY COMMENT ABNORMAL; SMUDGE CELLS FEW
[2019-04-17] MEDS ORDERED: IOPAMIDOL 370 MG/ML 200 ML INFUS..BTL INJ ONE ×2 (07:13)
[2019-04-17] MEDS ORDERED: SODIUM CHLORIDE 0.9% 100 ML ONE (07:14)
[2019-04-17] MEDS: IPRATROPIUM BROMIDE 0.02% 2.5 ML NEB NEB SCH ×3 (07:15→18:53)
[2019-04-17] MEDS: INSULIN REGULAR, HUMAN 100 UNIT/1 ML 3ML VIAL SQ SCH ×5 (07:30→21:00)
[2019-04-17 07:56] LABS: BASOPHILS % 0.2 % (0.0-1.0); EOSINOPHILS # (AUTO) 0.1 (0.0-0.4); EOSINOPHILS % 0.8 % (0.0-6.0); HEMATOCRIT 35.5 % (38.2-49.6); HEMOGLOBIN 11.7 g/dL (14.0-18.0); LYMPHOCYTES # (AUTO) 0.6 (1.0-3.2); LYMPHOCYTES % 3.6 % (18.0-39.1); MEAN CORPUSCULAR HEMOGLOBIN 29.7 pg (28-32); MEAN CORPUSCULAR VOLUME 90.1 fL (81-99); MONOCYTES # (AUTO) 1.1 (0.2-0.8); MONOCYTES % 6.3 % (4.4-11.3); NEUTROPHILS # (AUTO) 15.2 (2.1-6.9); NEUTROPHILS % 88.3 % (38.7-80.0); PLATELET COUNT 202 x10e3/uL (140-360); RED BLOOD COUNT 3.94 x10e6/uL (4.3-5.7)
[2019-04-17] MEDS: SODIUM CHLORIDE 0.9% IRRIG 3,000 ML BAG IR SCH ×4 (08:00→20:05)
[2019-04-17] MEDS: METFORMIN HCL 500 MG TAB PO SCH ×2 (08:00→17:00)
[2019-04-17] MEDS: SITAGLIPTIN 100 MG TAB PO SCH ×2 (08:00→17:00)
--- NOTE | 2019-04-17 08:00 | Diagnostic Imaging Report ---
EXAM: CT Chest WITH contrast- Pulmonary Embolism Protocol INDICATION: Fever, hypoxia. Query pulmonary embolism. COMPARISON: Chest radiograph 04/16/[address] abdomen/pelvis. TECHNIQUE: Chest was scanned utilizing a multidetector helical scanner from the lung apex through the level of the diaphragm after administration of IV contrast. Thin section reconstructions were obtained with special concentration on the pulmonary arteries. Coronal and sagittal reformations were obtained. Pulmonary embolism protocol was performed. IV CONTRAST: 75 cc of Isovue 370 RADIATION DOSE: Total DLP: 2327 mGy*cm Dose modulation, iterative reconstruction, and/or weight based adjustment of the mA/kV was utilized to reduce the radiation dose to as low as reasonably achievable. COMPLICATIONS: None FINDINGS: LINES/ TUBES: ET tube terminates in the lower trachea. Enteric tube terminates in the stomach. PULMONARY ARTERIES: Exam is limited by motion artifact and contrast bolus timing, particularly in the upper lobes. No evidence of central filling defect (in the main or lobar pulmonary arteries). The segmental and subsegmental pulmonary arteries are not well evaluated. The main pulmonary artery measures up to 2.6 cm. LUNGS AND AIRWAYS: Exam is somewhat limited by motion. The central airways are patent. There are multifocal groundglass and consolidative opacities in all lobes, most confluent in the right greater than left lower lobes and right greater than left upper lobes. There is a bilateral smooth intralobular septal thickening. PLEURA: The pleural spaces are clear. HEART AND MEDIASTINUM: The thyroid gland is not well evaluated. Extensive coronary atherosclerosis. Coronary stents. Calcified mediastinal and hilar nodes likely related to prior granulomatous disease. Mild cardiomegaly. No pericardial effusion. No evidence of acute aortic pathology, although evaluation is somewhat limited by bolus timing. There is fluid in the mid to distal esophagus. UPPER ABDOMEN: Please refer to the concurrently performed CT abdomen/pelvis. Air distended stomach. BONES: No acute osseous abnormality. No suspicious lytic or blastic lesions. SOFT TISSUES: Unremarkable. IMPRESSION: Limited examination secondary to motion contrast bolus timing. No evidence of main or lobar pulmonary embolism. The segmental and subsegmental pulmonary arteries are not well evaluated. Findings of multifocal pneumonia, likely with superimposed pulmonary edema. Recommend follow-up imaging to assess for resolution. Extensive coronary atherosclerosis with coronary stents. No evidence of acute aortic pathology, although evaluation is somewhat limited by bolus timing. Please refer to the concurrently performed CT abdomen/pelvis for details of intraabdominal findings. Air distended stomach and fluid in the mid to distal esophagus, which may represent aspiration risk. Signed by: Dr. Destin Sneed MD on 04/17/2019 7:57 AM
[2019-04-17 08:06] LABS: PARTIAL THROMBOPLASTIN TIME 29.5 seconds (23.8-35.5)
--- NOTE | 2019-04-17 08:08 | Diagnostic Imaging Report ---
EXAM: CTA Abdomen and Pelvis with contrast INDICATION: Shortness of breath, post intubation. COMPARISON: Concurrently performed CT chest. CT abdomen/pelvis 06/25/2018. TECHNIQUE: Abdomen and pelvis were scanned utilizing a multidetector helical scanner from the lung base to the pubic symphysis after administration of IV contrast. Coronal and sagittal reformations were obtained. No noncontrast study was performed, due to the prior CT PE. Initial scan in portal venous phase performed. A second contrast bolus was administered to perform arterial phase imaging. IV CONTRAST: Additional 75 cc of Isovue-370. ORAL CONTRAST: None. COMPLICATIONS: None RADIATION DOSE: Total DLP: 2327 mGy*cm Estimated effective dose: (DLP x 0.015 x size factor) mSv CTDIvol has been reviewed. It is below the limits set by the Radiation Protocol Committee (RPC). FINDINGS: VASCULAR FINDINGS: No evidence of aortic dissection or aneurysm. Intramural hematoma cannot be assessed in the absence of noncontrast images. The aorta at the diaphragmatic hiatus measures up to 2.1 cm. The suprarenal abdominal aorta measures up to 2.1 cm. The infrarenal abdominal aorta measures up to 1.7 cm. Mild atherosclerotic calcifications of the abdominal aorta and branch vessels. The celiac artery, SMA, and MIGUEL appear patent. Two bilateral renal arteries which appear patent. NON VASCULAR FINDINGS: LINES and TUBES: Enteric tube terminates in an air-filled stomach. Coughlin catheter terminates in the bladder. LOWER THORAX: Please refer to the concurrently performed chest CT for details of intrathoracic findings. HEPATOBILIARY: No evidence of focal lesion. No biliary ductal dilation. GALLBLADDER: No radio-opaque stones or sludge. No wall thickening. SPLEEN: No splenomegaly. PANCREAS: No focal masses or ductal dilatation. ADRENALS: No adrenal nodules KIDNEYS/URETERS: Kidneys enhance symmetrically. No evidence of hydronephrosis, solid mass, or stone. GI TRACT: No evidence of wall thickening or distension. Appendix is normal. PELVIC ORGANS/BLADDER: Decompressed bladder which appears potentially mildly thick-walled and contains Coughlin catheter. The prostate is enlarged, measuring up to 5.6 cm. LYMPH NODES: No lymphadenopathy. PERITONEUM / RETROPERITONEUM: No free air or fluid. BONES AND SOFT TISSUES: No acute osseous abnormality. Fat-containing right inguinal hernia. CONCLUSION: No evidence of acute aortic pathology in the abdomen or pelvis. Enteric tube terminates in an air-filled stomach, which may represent aspiration risk. Prostatomegaly. Circumferentially mildly thick-walled bladder, which may reflect decompression, chronic bladder outlet obstruction, and/or cystitis in the appropriate clinical setting. Please refer to the concurrently performed CT PE for details of intrathoracic findings. Signed by: Dr. Destin Sneed MD on 04/17/2019 8:05 AM
--- NOTE | 2019-04-17 08:10 | Diagnostic Imaging Report ---
EXAMINATION: CHEST SINGLE (PORTABLE) INDICATION: ET Tube location. COMPARISON: Chest radiograph 04/16/[address] chest 04/17/2019. FINDINGS: TUBES and LINES: ET tube terminates in the midtrachea, 3.9 cm above the caryn. Enteric tube courses into the stomach, which is air distended. LUNGS: Lungs are well inflated. There are extensive bilateral interstitial and multifocal consolidative opacities. Linear subsegmental atelectasis in the right mid and left upper lung zones. PLEURA: No pleural effusion or pneumothorax. HEART AND MEDIASTINUM: The cardiomediastinal silhouette is unremarkable. BONES AND SOFT TISSUES: No acute osseous abnormality. UPPER ABDOMEN: No free air under the diaphragm. IMPRESSION: ET tube terminates 3.9 cm above the caryn. No evidence of pneumothorax. Extensive multifocal opacities, likely representing a combination of multifocal pneumonia and pulmonary edema, better characterized on same day chest CT. Signed by: Dr. Destin Sneed MD on 04/17/2019 8:07 AM
[2019-04-17 08:15] LABS: ALANINE AMINOTRANSFERASE 18 IU/L (0-55); ALBUMIN 2.5 g/dL (3.5-5.0); ALBUMIN/GLOBULIN RATIO 0.7 (0.8-2.0); ALKALINE PHOSPHATASE 83 IU/L (40-150); ANION GAP 14.2 mmol/L (8-16); BLOOD UREA NITROGEN 9 mg/dL (7-26); BUN/CREATININE RATIO 8 (6-25); CALCIUM 8.6 mg/dL (8.4-10.2); CARBON DIOXIDE 23 mmol/L (22-29); CHLORIDE 104 mmol/L (98-107); CREATININE, SERUM 1.17 mg/dL (0.72-1.25); EST GLOMERULAR FILTRATION RATE > 60 ML/MIN (60-); GLUCOSE 258 mg/dL (74-118); MAGNESIUM 1.5 MG/DL (1.3-2.1); PHOSPHORUS 3.8 MG/DL (2.3-4.7); POTASSIUM 4.2 mmol/L (3.5-5.1); SODIUM 137 mmol/L (136-145)
[2019-04-17] MEDS ORDERED: FENTANYL CITRATE INJ 2,000 MCG in SODIUM CHLORIDE 0.9% 250ML 210 ML IV PRN (08:30)
[2019-04-17] MEDS ORDERED: MIDAZOLAM HCL 25 MG in SODIUM CHLORIDE 0.9% 50ML 45 ML IV PRN (08:30)
[2019-04-17 08:32] LABS: CREATINE KINASE MB 2.1 ng/mL (0-5.0)
[2019-04-17 08:37] LABS: ABG PCO2 42 mmHg (41-51); ABG PH 7.33 (7.31-7.41); ABG PO2 85 mmHg (80-105)
[2019-04-17 08:38] LABS: ABG HCO3 22 mmol/L (23-28)
[2019-04-17 08:42] LABS: CLARITY,URINE HAZY (CLEAR); COLOR,URINE YELLOW (YELLOW); KETONES,URINE NEGATIVE (NEGATIVE); LEUKOCYTE ESTERASE ,URINE NEGATIVE (NEGATIVE); NITRITE,URINE NEGATIVE (NEGATIVE); PROTEIN,URINE DIPSTICK NEGATIVE (NEGATIVE); URINE UROBILINOGEN 0.2 mg/dL (0.2 - 1)
[2019-04-17 08:43] LABS: BILIRUBIN,URINE NEGATIVE (NEGATIVE)
[2019-04-17 08:55] LABS: WBC,URINE (MAN) 0-5 /HPF (0-5)
[2019-04-17 08:56] LABS: BACTERIA,URINE FEW /HPF; EPITHELIAL CELLS,URINE FEW /LPF; RBC,URINE 21-50 /HPF (0-5)
[2019-04-17] MEDS: (Ubidecarenone (Co Q-10) 1 CAP) PO SCH (09:00)
[2019-04-17] MEDS: [UNRECOGNIZED DRUG - OTHER] PO SCH (09:00)
[2019-04-17] MEDS: MULTIVITAMINS/MINERALS TAB PO SCH (09:00)
[2019-04-17] MEDS: GUAIFENESIN 600MG/DEXTROMETHORPHAN 30MG TABSR PO SCH ×2 (09:00→21:00)
[2019-04-17] MEDS: OMEGA 3 POLYUNSAT FATTY ACIDS 1000 MG SOFTGEL PO SCH (09:00)
[2019-04-17] MEDS: METOPROLOL SUCCINATE 50 MG TAB XL PO SCH (09:00)
[2019-04-17] MEDS: BENZONATATE 100 MG CAP PO SCH ×3 (09:00→21:00)
[2019-04-17] MEDS ORDERED: FUROSEMIDE INJ 10 MG/ML 4 ML VIAL IV ONE ×2 (09:30→10:30)
[2019-04-17] MEDS: ASPIRIN 81 MG CHEW TAB PO SCH (11:15)
[2019-04-17] MEDS: VANCOMYCIN 1GM/NS 250 ML 250 ML IV SCH ×2 (11:15→22:26)
--- NOTE | 2019-04-17 11:32 | NUR ---
Nutrition Intervention Note RD Recommendation(s) for Physician: Glucerna 1.2 at 70ml/hr Plan of Care: RD following, monitoring for tolerance and adequacy Nutrition reason for involvement: Orally intubated RD Assessment Initial encounter with patient. Pt with a change of status and transferred to the ICU where he was orally intubated and was not able to provide a nutrition Hx. Family was present. 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 Pt followed a diabetes diet at home due to fluctuating blood sugars that were either too low or too high. Pt has no known food allergies, N,V,D, nor had any difficulty chewing or swallowing. Pt is dentate. Principal Problems/Diagnoses: Fever, hypoxia, pneumonia PMH: 1. Type 2 diabetes mellitus. 2. 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 3. Dyslipidemia. 4. Vitamin D deficiency. 5. Benign prostatic hypertrophy. 6. Hypertensive heart disease. 7. Coronary artery disease (history of coronary stent placement on four different occasions, the last one was in 2016). GI:No nausea, vomiting, or constipation Skin:Intact Labs: 04/17/19) Glucose 246 Meds: (04/17/19) MAR reviewed Ht:67 in. Wt:187lbs BMI:29.3kg/M2 IBW:148lbs Malnutrition Evaluation (04/17/19) The patient does not meet criteria for a specified degree of malnutrition at this time. Will re-evaluate at follow-up as appropriate. Nutrition Prescription (Diet Order):NPO Estimated Nutritional Needs: 2125 calories at 25 kcals/kg/bw 85-127.5g protein/day at 1-1.5g/kg/bw Diet Adequacy: Not meeting calorie needs, Not meeting protein needs Diet Education Needs Assessment: Diet education not indicated Nutrition Care Level: High Nutrition Diagnosis: Swallowing difficulty related to respiratory failure as evidenced by oral intubation and need to remain NPO. Goal: Patient will meet 75-100% of estimated needs by follow up Progress: Not Progressing Interventions: Commercial food, Composition, Rate, Route, IVF, Prescription medications Monitoring/Evaluation: Total energy intake, Total protein intake, Formula/Solution, IVF, Prescription medication, Weight change Signed: Edenilson Avilez RD, LD, [facility]
[2019-04-17] MEDS ORDERED: DEXTROSE 50% SYRINGE 50 ML IV PRN (11:45)
[2019-04-17] MEDS ORDERED: SODIUM CHLORIDE 0.9% 1000ML 1,000 ML IV ONE (15:00)
[2019-04-17] MEDS: PIPER-TAZ 3.375 GM 50 ML IV SCH ×2 (15:30→22:26)
--- NOTE | 2019-04-17 16:25 | Diagnostic Imaging Report ---
EXAMINATION: CHEST XRAY LINE PLACEMENT INDICATION: Check PICC. COMPARISON: Chest radiograph and CT chest 04/17/2019. FINDINGS: TUBES and LINES: Interval placement of a left arm PICC which terminates in the mid SVC. ET tube terminates in the midtrachea, 3.6 cm above the caryn. Enteric tube courses into the stomach, the tip is not well seen. LUNGS: Lungs are well inflated. Interval substantial improvement of multifocal bilateral airspace opacities. Mild interstitial opacities bilaterally. PLEURA: No pleural effusion or pneumothorax. HEART AND MEDIASTINUM: The cardiomediastinal silhouette is unremarkable. BONES AND SOFT TISSUES: No acute osseous abnormality. UPPER ABDOMEN: No free air under the diaphragm. The stomach is no longer distended with air. IMPRESSION: Interval placement of left arm PICC which terminates in the mid SVC. No evidence of pneumothorax. Interval substantial improvement in multifocal bilateral airspace opacities. Residual opacities may reflect pulmonary edema and/or pneumonia. Signed by: Dr. Destin Sneed MD on 04/17/2019 4:21 PM
[2019-04-17] MEDS: LISINOPRIL 20 MG TAB PO SCH (17:00)
[2019-04-17] MEDS: ENOXAPARIN SOD INJ 40 MG/0.4 ML SYR SC SCH (17:15)
[2019-04-17 17:24] LABS: CREATINE KINASE MB 2.6 ng/mL (0-5.0)
--- NOTE | 2019-04-17 19:07 | Consultation ---
DATE OF CONSULTATION: REPORT SOL: Critical Care Consultation REASON FOR CONSULT: ICU management. CHIEF COMPLAINT: The patient had Code Blue rapid response earlier this morning and was transferred to ICU. He became hypoxic and was cyanotic and intubated. I spoke to the ER physician and the patient's both daughters are at bedside. He was initially admitted for pneumonia and sepsis, for which he was continued on IV antibiotics. The patient was being followed by Dr. Ware. The patient also has history of congestive heart failure, and he was on medications for heart failure at home. He is currently intubated, sedated, and is unable to give me any history. The Code was called around 04:51 a.m., and he got up to the bathroom and became short of breath with severe distress. The patient's ER physician was called. The patient was intubated and Lasix 80 mg IV and Versed was given. Intubation was done after three attempts per the note. His last echo which was done on 04/14/2019 showed LVH, EF of 55% to 60%. Left atrium is mildly dilated. He is a lifelong nonsmoker. REVIEW OF SYSTEMS: Unable to elicit any from the patient, the patient is sedated. PAST MEDICAL HISTORY: Hypertension, diabetes, diastolic heart failure, vitamin D deficiency, BPH, coronary artery disease, history of stent placement four times, last one was in 2016. PAST SURGICAL HISTORY: Left knee surgery at the age of 18. FAMILY HISTORY: Both parents have congestive heart failure. SOCIAL HISTORY: He is , lives with his . 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 Does not smoke. Does not drink. PHYSICAL EXAMINATION: VITAL SIGNS: Temperature 97.8, pulse of 76, blood pressure 108/74, respiratory rate of 18. He is on mechanical ventilator [facility] with FiO2 of 60%, tidal volume 500, rate of 16. HEENT: Head atraumatic, normocephalic, intubated. NECK: Supple. CHEST: Crackles bilaterally. HEART: S1, S2 audible. ABDOMEN: Soft, nontender. EXTREMITIES: Trace pedal edema. NEUROLOGICAL: He is sedated, intubated. LABORATORY DATA: White count yesterday went up to 28,000, today is 17,000, hemoglobin 11.7, platelets 202. Chemistries within normal limits. Blood gas was done after intubation, which is reviewed, pH of 7.33, pCO2 42, pO2 85. Chest CT, I have reviewed all the images. The patient is having multilobar pneumonia and possibly fluid overload along with it. Brain CT was done, which showed no acute abnormalities. CTA did not show any PE. CT of the abdomen and pelvis was done, which showed no evidence of acute aortic pathology. ASSESSMENT/PLAN: Mr. Meyer is a 68-year-old male, who presented to the emergency room with complaints of shortness of breath, diagnosed with pneumonia, was on the floor and had a Code Blue in rapid response for hypoxic respiratory failure. The patient was in severe distress. CPR was never done. He was intubated and transferred to ICU. Current problem: 1. Multilobar pneumonia. 2. Possible fluid overload due to diastolic heart failure. 3. History of diabetes. 4. History of hypertension. PLAN: 1. Ventilator setting reviewed. We will reduce the tidal volume to 480. Change the mode to PRVC. 2. I will start the patient on IV Zosyn for possible aspiration. There is a difference between the chest x-ray, which was done two days ago and today possibly aspirated on top of his pneumonia because of developing respiratory arrest. 3. Hold off on the antihypertensive medication. Blood pressure is on the lower side. Possibly, will drop blood pressure. Lactic acid was checked, it was 2.0. Follow the blood cultures and sputum cultures. Nebulizer treatment as ordered. Critical care time spent 60 minutes. Case was discussed in detail with the patient's both daughters at bedside. Both of them are nurses, also discussed with the patient's at bedside. MD JESSE Gonzales/ARNEL /[id number]
[2019-04-17] MEDS: TRESIBA 100 UNIT SC SCH (21:00)
[2019-04-17] MEDS: CRESTOR 10MG PO SCH (21:00)
[2019-04-17] MEDS: AZITHROMYCIN 500MG/NS 250 ML 250 ML IV SCH (22:26)
[2019-04-17 23:59] LABS: HEMATOCRIT 33.2 % (38.2-49.6); HEMOGLOBIN 10.9 g/dL (14.0-18.0)
[2019-04-18] VITALS (26 sets, daily range): BP systolic 117–185; BP diastolic 67–118
[2019-04-18] MEDS: IPRATROPIUM BROMIDE 0.02% 2.5 ML NEB NEB SCH ×5 (01:00→22:38)
[2019-04-18] MEDS: SODIUM CHLORIDE 0.9% IRRIG 3,000 ML BAG IR SCH ×6 (01:02→20:00)
[2019-04-18 01:23] LABS: CREATINE KINASE MB 1.3 ng/mL (0-5.0)
[2019-04-18 05:26] LABS: BASOPHILS % 0.3 % (0.0-1.0); EOSINOPHILS # (AUTO) 0.4 (0.0-0.4); EOSINOPHILS % 3.5 % (0.0-6.0); HEMOGLOBIN 10.7 g/dL (14.0-18.0); LYMPHOCYTES # (AUTO) 1.5 (1.0-3.2); LYMPHOCYTES % 12.6 % (18.0-39.1); MEAN CORPUSCULAR HEMOGLOBIN 29.6 pg (28-32); MEAN CORPUSCULAR HGB CONC 32.4 g/dL (31-35); MEAN CORPUSCULAR VOLUME 91.2 fL (81-99); MONOCYTES % 8.2 % (4.4-11.3); NEUTROPHILS % 74.7 % (38.7-80.0); PLATELET COUNT 212 x10e3/uL (140-360); RED BLOOD COUNT 3.62 x10e6/uL (4.3-5.7); RED CELL DISTRIBUTION WIDTH 14.3 % (11.7-14.4)
[2019-04-18] MEDS: INSULIN REGULAR, HUMAN 100 UNIT/1 ML 3ML VIAL SQ SCH ×8 (06:00→21:00)
[2019-04-18 06:09] LABS: ALANINE AMINOTRANSFERASE 16 IU/L (0-55); ALBUMIN 2.3 g/dL (3.5-5.0); ALBUMIN/GLOBULIN RATIO 0.7 (0.8-2.0); ALKALINE PHOSPHATASE 61 IU/L (40-150); ANION GAP 15.1 mmol/L (8-16); BLOOD UREA NITROGEN 10 mg/dL (7-26); BUN/CREATININE RATIO 10 (6-25); CALCIUM 8.4 mg/dL (8.4-10.2); CARBON DIOXIDE 24 mmol/L (22-29); CHLORIDE 110 mmol/L (98-107); CREATININE, SERUM 1.01 mg/dL (0.72-1.25); EST GLOMERULAR FILTRATION RATE > 60 ML/MIN (60-); GLUCOSE 76 mg/dL (74-118); POTASSIUM 3.1 mmol/L (3.5-5.1); SODIUM 146 mmol/L (136-145)
[2019-04-18] MEDS: PIPER-TAZ 3.375 GM 50 ML IV SCH ×3 (06:11→22:34)
[2019-04-18] MEDS: ALBUTEROL SULF 0.083% NEB SOLN 3 ML NEB NEB SCH ×5 (06:32→22:38)
--- NOTE | 2019-04-18 07:36 | Diagnostic Imaging Report ---
EXAMINATION: CHEST SINGLE (PORTABLE) COMPARISON: Chest x-ray 04/17/2019 INDICATION: ^PNEUMONIA ^[id number] ^[id number] DISCUSSION: Frontal view of the chest obtained at 0633 hours. HEART AND MEDIASTINUM: Mildly enlarged, stable LINES: Endotracheal tube tip is poorly visualized due to overlapping medical devices. Enteric tube extends past the diaphragm. Left PICC line terminates in the SVC. LUNGS: Perihilar atelectasis in the left lung is stable. Subsegmental atelectasis of the inferior right upper lobe is new. PLEURA: No pleural effusion or pneumothorax. BONES AND SOFT TISSUES: No focal osseous lesion. The soft tissues are normal. IMPRESSION: Poor visualization of endotracheal tube as described above. Other support devices as described above. Increasing right upper lobe atelectasis. Signed by: Dr. Rosalinda Melgar MD on 04/18/2019 7:33 AM
[2019-04-18] MEDS: SITAGLIPTIN 100 MG TAB PO SCH (08:00)
[2019-04-18] MEDS: METFORMIN HCL 500 MG TAB PO SCH (08:00)
[2019-04-18 08:30] LABS: ABG PH 7.38 (7.31-7.41)
[2019-04-18 08:31] LABS: ABG HCO3 24 mmol/L (23-28); ABG PCO2 40 mmHg (41-51); ABG PO2 100 mmHg (80-105)
[2019-04-18] MEDS: OMEGA 3 POLYUNSAT FATTY ACIDS 1000 MG SOFTGEL PO SCH (09:00)
[2019-04-18] MEDS: MULTIVITAMINS/MINERALS TAB PO SCH (09:00)
[2019-04-18] MEDS: METOPROLOL SUCCINATE 50 MG TAB XL PO SCH (09:00)
[2019-04-18] MEDS: [UNRECOGNIZED DRUG - OTHER] PO SCH (09:00)
[2019-04-18] MEDS: (Ubidecarenone (Co Q-10) 1 CAP) PO SCH ×2 (09:00→21:44)
[2019-04-18] MEDS ORDERED: POTASSIUM CHLORIDE 20MEQ/100ML 200 ML IV ONE (09:30)
[2019-04-18] MEDS: ASPIRIN 81 MG CHEW TAB PO SCH (09:57)
[2019-04-18] MEDS ORDERED: FUROSEMIDE INJ 10 MG/ML 4 ML VIAL IV ONE ×2 (11:00→12:00)
--- NOTE | 2019-04-18 11:15 | NUR ---
Extubated to aerosol mask.
[2019-04-18] MEDS ORDERED: MAGNESIUM SULFATE 2GM/50ML 50 ML IV ONE ×2 (11:30→12:30)
[2019-04-18] MEDS: VANCOMYCIN 1GM/NS 250 ML 250 ML IV SCH ×2 (11:56→21:19)
[2019-04-18] MEDS ORDERED: MIDAZOLAM HCL 2 MG/2 ML VIAL ONE (13:54)
[2019-04-18] MEDS ORDERED: SUCCINYLCHOLINE CHLORIDE 20 MG/ML 10ML VIAL ONE (13:54)
[2019-04-18] MEDS: ENOXAPARIN SOD INJ 40 MG/0.4 ML SYR SC SCH (18:13)
[2019-04-18] MEDS ORDERED: POTASSIUM CHLORIDE 10MEQ EA PO ONE ×2 (18:45→21:00)
--- NOTE | 2019-04-18 19:34 | Consultation ---
DATE OF CONSULTATION: 04/17/2019 Cardiology consultation Thank you for asking me to see this nice man in consultation. HISTORY OF PRESENT ILLNESS: Mr. Meyer is a pleasant 68-year-old man, diabetic, known to our service for many years, who was admitted to the hospital on April 13, 2019 with a complaint of cough and fever, felt to have sepsis and pneumonia. Consultation is asked at this time for deterioration when he was moved to the ICU requiring mechanical ventilation and concern about known coronary artery disease. PAST MEDICAL HISTORY: Significant for myocardial infarction in May 2004, treated with stent to the circumflex. In June 2010, he had unstable angina and was treated with stent to the LAD. Again, known to have diabetes and hyperlipidemia. MEDICATIONS: His recent home medications include, 1. Aspirin 81 mg daily. 2. Metoprolol succinate 50 mg daily. 3. Rosuvastatin 40 mg daily. 4. Lisinopril 20 mg daily. 5. Vascepa 1 g two capsules twice a day. PERSONAL AND SOCIAL HISTORY: He does not smoke or drink. PHYSICAL EXAMINATION: GENERAL: At this time shows a man who is on ventilator and sedated. VITAL SIGNS: Blood pressure 90/50 and pulse is 100 with prematures. HEAD, EYES, EARS, NOSE, AND THROAT: Unremarkable. NECK: No jugular venous distention. THORAX: There are rhonchi in both sides of the chest. HEART: Sounds are distant, but equal and regular. No murmur audible. ABDOMEN: Normal bowel sounds. EXTREMITIES: No cyanosis, clubbing, or edema. LABORATORY DATA: EKG shows sinus tachycardia. Echocardiogram performed on April 14 shows normal LV function, EF 55-60% with mildly dilated left atrium. Chest x-ray suggests pneumonia. ASSESSMENT: 1. Multilobular pneumonia. 2. Type 2 adult onset diabetes. 3. Sepsis. 4. History of coronary disease without evidence of new cardiac event. Troponins have been normal at this time. PLAN: We will monitor him with you and use of pressors as necessary. Recheck cardiac enzymes and EKGs. Thank you for asking me to see him in consultation. MD MISAEL Funez/ARNEL /[id number] cc: Ronan Kelley MD
[2019-04-18] MEDS: TRESIBA 100 UNIT SC SCH (21:00)
[2019-04-18] MEDS: BENZONATATE 100 MG CAP PO SCH ×2 (21:15→21:19)
[2019-04-18] MEDS: GUAIFENESIN 600MG/DEXTROMETHORPHAN 30MG TABSR PO SCH (21:16)
[2019-04-18] MEDS: LISINOPRIL 20 MG TAB PO SCH (21:17)
[2019-04-18] MEDS: CRESTOR 10MG PO SCH (21:20)
[2019-04-18] MEDS: AZITHROMYCIN 500MG/NS 250 ML 250 ML IV SCH (21:37)
[2019-04-18] MEDS ORDERED: SODIUM CHLORIDE 0.9% 250ML 250 ML ONE (21:47)
[2019-04-19] VITALS (26 sets, daily range): BP systolic 118–180; BP diastolic 54–101
[2019-04-19] MEDS: DIPHENHYDRAMINE HCL 25 MG CAP PO PRN (00:40)
[2019-04-19] MEDS: ALBUTEROL SULF 0.083% NEB SOLN 3 ML NEB NEB SCH ×6 (02:49→23:05)
[2019-04-19] MEDS: SODIUM CHLORIDE 0.9% IRRIG 3,000 ML BAG IR SCH ×5 (04:00→15:42)
[2019-04-19 05:15] LABS: BASOPHILS % 0.3 % (0.0-1.0); EOSINOPHILS # (AUTO) 0.7 (0.0-0.4); EOSINOPHILS % 5.4 % (0.0-6.0); HEMATOCRIT 34.7 % (38.2-49.6); LYMPHOCYTES # (AUTO) 1.4 (1.0-3.2); LYMPHOCYTES % 11.9 % (18.0-39.1); MEAN CORPUSCULAR HEMOGLOBIN 28.9 pg (28-32); MEAN CORPUSCULAR HGB CONC 31.7 g/dL (31-35); MEAN CORPUSCULAR VOLUME 91.3 fL (81-99); MONOCYTES # (AUTO) 1.2 (0.2-0.8); MONOCYTES % 9.6 % (4.4-11.3); NEUTROPHILS # (AUTO) 8.8 (2.1-6.9); NEUTROPHILS % 72.3 % (38.7-80.0); PLATELET COUNT 149 x10e3/uL (140-360)
[2019-04-19 05:42] LABS: ALANINE AMINOTRANSFERASE 19 IU/L (0-55); ALBUMIN 2.4 g/dL (3.5-5.0); ALBUMIN/GLOBULIN RATIO 0.6 (0.8-2.0); ALKALINE PHOSPHATASE 65 IU/L (40-150); ANION GAP 14.7 mmol/L (8-16); BLOOD UREA NITROGEN 7 mg/dL (7-26); BUN/CREATININE RATIO 8 (6-25); CALCIUM 8.4 mg/dL (8.4-10.2); CARBON DIOXIDE 24 mmol/L (22-29); CHLORIDE 101 mmol/L (98-107); CREATININE, SERUM 0.83 mg/dL (0.72-1.25); EST GLOMERULAR FILTRATION RATE > 60 ML/MIN (60-); GLUCOSE 172 mg/dL (74-118); POTASSIUM 3.7 mmol/L (3.5-5.1); SODIUM 136 mmol/L (136-145)
[2019-04-19] MEDS: INSULIN REGULAR, HUMAN 100 UNIT/1 ML 3ML VIAL SQ SCH ×8 (06:00→21:23)
[2019-04-19] MEDS: PIPER-TAZ 3.375 GM 50 ML IV SCH ×3 (06:15→22:30)
[2019-04-19] MEDS: IPRATROPIUM BROMIDE 0.02% 2.5 ML NEB NEB SCH ×3 (06:55→19:10)
[2019-04-19] MEDS: VANCOMYCIN 1GM/NS 250 ML 250 ML IV SCH ×2 (08:06→21:26)
[2019-04-19] MEDS: (Ubidecarenone (Co Q-10) 1 CAP) PO SCH (08:06)
[2019-04-19] MEDS: OMEGA 3 POLYUNSAT FATTY ACIDS 1000 MG SOFTGEL PO SCH (08:06)
[2019-04-19] MEDS: MULTIVITAMINS/MINERALS TAB PO SCH (08:06)
[2019-04-19] MEDS: GUAIFENESIN 600MG/DEXTROMETHORPHAN 30MG TABSR PO SCH ×2 (08:06→21:29)
[2019-04-19] MEDS: BENZONATATE 100 MG CAP PO SCH ×3 (08:06→21:24)
[2019-04-19] MEDS: LISINOPRIL 20 MG TAB PO SCH ×2 (08:06→16:27)
[2019-04-19] MEDS: [UNRECOGNIZED DRUG - OTHER] PO SCH (08:06)
[2019-04-19] MEDS: ASPIRIN 81 MG CHEW TAB PO SCH (08:06)
[2019-04-19] MEDS: METOPROLOL SUCCINATE 50 MG TAB XL PO SCH (08:07)
--- NOTE | 2019-04-19 08:11 | Diagnostic Imaging Report ---
Examination: Single AP view of the chest. COMPARISON: 04/18/2019 INDICATION: CHF, pneumonia DISCUSSION: Interval extubation and removal of enteric tube. Left upper extremity PICC is stable in position with the tip terminating over the brachiocephalic venous confluence. Lungs are well-inflated and without consolidation. Right upper lobe subsegmental atelectasis has resolved. No new pleural effusion or pneumothorax. Stable cardiomediastinal contour without overt pulmonary edema. No acute osseous abnormality. IMPRESSION: Interval extubation with resolution of right upper lobe subsegmental atelectasis. No new consolidations. Signed by: Dr. Juan Luis Hart M.D. on 04/19/2019 8:08 AM
--- NOTE | 2019-04-19 11:08 | NUR ---
ASSESSMENT: No spiritual/emotional concerns expressed Pt's at bedside. Provided hospitality and information on how to reach transmission and coordination engineer, if needed. No need to follow at this time. ASHLEY ALEGRE [employer] Spiritual Care Department O: [phone] Pager: [phone] ([phone] number calling from)
[2019-04-19] MEDS ORDERED: ALTEPLASE RECOMBINANT 2 MG/2 ML VIAL IV PRN (11:15)
[2019-04-19] MEDS: FUROSEMIDE INJ 10 MG/ML 4 ML VIAL IV SCH ×2 (12:06→21:26)
[2019-04-19] MEDS: ENOXAPARIN SOD INJ 40 MG/0.4 ML SYR SC SCH (16:27)
--- NOTE | 2019-04-19 18:32 | NUR ---
Patient ambulated twice in hallway this morning. Patient experienced desaturating to low 80's despite 2-3 L NC while walking. Patient sat up in chair during the afternoon. Orders given to d/c Ced. Patient voided after catheter removal. Diet progressed to diabetic diet, pt tolerating diet well. L picc line occluded, Dr. Ware gave orders for cath ronnie. PICC line now patent and gives blood returned. Patient does not appear to be in any distress at this time. Will continue to monitor.
--- NOTE | 2019-04-19 19:46 | NUR ---
Follow Up Note RD Recommendation(s) for Physician: -Continue diabetic diet Plan of Care: RD following, monitoring for tolerance and adequacy Nutrition reason for involvement: Follow up RD Assessment (04/19/19). Pt was extubated yesterday and is tolerating PO diet per RN. RN reported pt is eating >50% of meals. Per documentation, pt consumed 50-75% of meals today. Will continue to monitor. 04/17/19) Initial encounter with patient. Pt with a change of status and transferred to the ICU where he was orally intubated and was not able to provide a nutrition Hx. Family was present. Family states that Pt was eating well [employer] and was voluntarily losing wt. Pt followed a diabetes diet at home due to fluctuating blood sugars that were either too low or too high. Pt has no known food allergies, N,V,D, nor had any difficulty chewing or swallowing. Pt is dentate. Principal Problems/Diagnoses: Fever, hypoxia, pneumonia PMH: 1. Type 2 diabetes mellitus. 2. 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 3. Dyslipidemia. 4. Vitamin D deficiency. 5. Benign prostatic hypertrophy. 6. Hypertensive heart disease. 7. Coronary artery disease (history of coronary stent placement on four different occasions, the last one was in 2016). GI: last recorded BM 04/19 Skin:Intact Labs: (04/19/19) Glu 172 (04/17/19) Glucose 246 Meds: lovenox, lisinopril, insulin regular, piperacillin/tazobactam, lasiz, insulin regular, multivitamin with minerals, omega-3 fish oil, vancomycin, azithromycin, zofran Ht:67 in. Wt:187lbs BMI:29.3kg/M2 IBW:148lbs Malnutrition Evaluation (04/17/19) The patient does not meet criteria for a specified degree of malnutrition at this time. Will re-evaluate at follow-up as appropriate. Nutrition Prescription (Diet Order): 1800 kcal ADA diet Estimated Nutritional Needs: 2125 calories at 25 kcals/kg/bw 85-127.5g protein/day at 1-1.5g/kg/bw Diet Education Needs Assessment: RD is available for diet education as needed Nutrition Care Level: low Nutrition Diagnosis: Swallowing difficulty related to respiratory failure as evidenced by oral intubation and need to remain NPO. (RESOLVED) Goal: Patient will meet 75-100% of estimated needs by follow up Progress: Progressing Signed: Umm Meneses, RD, LD
[2019-04-19] MEDS: TRESIBA 100 UNIT SC SCH (21:00)
[2019-04-19] MEDS: CRESTOR 10MG PO SCH (21:24)
[2019-04-19] MEDS: AZITHROMYCIN 500MG/NS 250 ML 250 ML IV SCH (21:26)
[2019-04-20] VITALS (18 sets, daily range): BP systolic 117–161; BP diastolic 59–90
[2019-04-20] MEDS: TRESIBA 100 UNIT SC SCH ×2 (00:05→21:30)
[2019-04-20] MEDS: ALBUTEROL SULF 0.083% NEB SOLN 3 ML NEB NEB SCH ×6 (03:10→22:37)
[2019-04-20] MEDS: IPRATROPIUM BROMIDE 0.02% 2.5 ML NEB NEB SCH ×4 (03:10→19:22)
[2019-04-20 05:47] LABS: BASOPHILS % 0.3 % (0.0-1.0); EOSINOPHILS # (AUTO) 0.7 (0.0-0.4); EOSINOPHILS % 7.4 % (0.0-6.0); HEMATOCRIT 33.8 % (38.2-49.6); HEMOGLOBIN 11.1 g/dL (14.0-18.0); LYMPHOCYTES # (AUTO) 1.7 (1.0-3.2); LYMPHOCYTES % 17.7 % (18.0-39.1); MEAN CORPUSCULAR HEMOGLOBIN 29.5 pg (28-32); MEAN CORPUSCULAR HGB CONC 32.8 g/dL (31-35); MEAN CORPUSCULAR VOLUME 89.9 fL (81-99); MONOCYTES # (AUTO) 0.9 (0.2-0.8); MONOCYTES % 9.6 % (4.4-11.3); NEUTROPHILS # (AUTO) 6.3 (2.1-6.9); NEUTROPHILS % 64.6 % (38.7-80.0); PLATELET COUNT 247 x10e3/uL (140-360); RED BLOOD COUNT 3.76 x10e6/uL (4.3-5.7); RED CELL DISTRIBUTION WIDTH 13.9 % (11.7-14.4)
[2019-04-20 06:08] LABS: ALANINE AMINOTRANSFERASE 19 IU/L (0-55); ALBUMIN 2.7 g/dL (3.5-5.0); ALBUMIN/GLOBULIN RATIO 0.7 (0.8-2.0); ALKALINE PHOSPHATASE 72 IU/L (40-150); BLOOD UREA NITROGEN 9 mg/dL (7-26); BUN/CREATININE RATIO 9 (6-25); CALCIUM 8.4 mg/dL (8.4-10.2); CARBON DIOXIDE 28 mmol/L (22-29); CHLORIDE 101 mmol/L (98-107); CREATININE, SERUM 1.01 mg/dL (0.72-1.25); EST GLOMERULAR FILTRATION RATE > 60 ML/MIN (60-); GLUCOSE 211 mg/dL (74-118); SODIUM 143 mmol/L (136-145)
[2019-04-20] MEDS: PIPER-TAZ 3.375 GM 50 ML IV SCH ×3 (06:15→22:15)
[2019-04-20] MEDS: INSULIN REGULAR, HUMAN 100 UNIT/1 ML 3ML VIAL SQ SCH ×6 (07:00→22:50)
[2019-04-20] MEDS ORDERED: SODIUM CHLORIDE 0.9% 500ML 500 ML IV ONE (08:15)
[2019-04-20] MEDS ORDERED: POTASSIUM CHLORIDE 10MEQ EA PO ONE ×2 (08:20→09:45)
[2019-04-20] MEDS: VANCOMYCIN 1GM/NS 250 ML 250 ML IV SCH ×2 (08:27→21:30)
[2019-04-20] MEDS: FUROSEMIDE INJ 10 MG/ML 4 ML VIAL IV SCH ×2 (08:27→21:30)
--- NOTE | 2019-04-20 08:27 | Diagnostic Imaging Report ---
EXAM: CHEST SINGLE (PORTABLE) DATE: 04/20/2019 5:00 AM INDICATION: Post extubation COMPARISON: 04/19/2019 FINDINGS: Left-sided PICC line identified in stable position. The trachea is midline. The lungs are symmetrically expanded without evidence for focal consolidation, pneumothorax, or significant pleural effusion. The cardiomediastinal silhouette is stable in appearance. No acute osseous abnormality identified. IMPRESSION: No acute cardiopulmonary process or significant interval change identified from 04/19/2019. Signed by: Dr. Reynold Willis MD on 04/20/2019 8:24 AM
[2019-04-20] MEDS: MULTIVITAMINS/MINERALS TAB PO SCH (08:28)
[2019-04-20] MEDS: OMEGA 3 POLYUNSAT FATTY ACIDS 1000 MG SOFTGEL PO SCH (08:28)
[2019-04-20] MEDS: [UNRECOGNIZED DRUG - OTHER] PO SCH (08:28)
[2019-04-20] MEDS: GUAIFENESIN 600MG/DEXTROMETHORPHAN 30MG TABSR PO SCH ×2 (08:28→21:30)
[2019-04-20] MEDS: ASPIRIN 81 MG CHEW TAB PO SCH (08:28)
[2019-04-20] MEDS: (Ubidecarenone (Co Q-10) 1 CAP) PO SCH (08:28)
[2019-04-20] MEDS: BENZONATATE 100 MG CAP PO SCH ×3 (08:29→21:30)
[2019-04-20] MEDS: LISINOPRIL 20 MG TAB PO SCH ×2 (08:43→16:39)
[2019-04-20] MEDS: METOPROLOL SUCCINATE 50 MG TAB XL PO SCH (08:44)
[2019-04-20] MEDS: ENOXAPARIN SOD INJ 40 MG/0.4 ML SYR SC SCH (16:39)
[2019-04-20] MEDS: CRESTOR 10MG PO SCH (21:30)
[2019-04-20] MEDS: AZITHROMYCIN 500MG/NS 250 ML 250 ML IV SCH (21:50)
[2019-04-21] MEDS: IPRATROPIUM BROMIDE 0.02% 2.5 ML NEB NEB SCH ×3 (02:15→12:15)
[2019-04-21] MEDS: ALBUTEROL SULF 0.083% NEB SOLN 3 ML NEB NEB SCH ×3 (02:15→12:15)
[2019-04-21 04:20] VITALS: BP 135/81
[2019-04-21] MEDS: PIPER-TAZ 3.375 GM 50 ML IV SCH (05:05)
[2019-04-21 05:16] LABS: BASOPHILS # (AUTO) 0.1 (0.0-0.1); BASOPHILS % 0.6 % (0.0-1.0); EOSINOPHILS # (AUTO) 0.7 (0.0-0.4); EOSINOPHILS % 7.4 % (0.0-6.0); HEMATOCRIT 35.2 % (38.2-49.6); HEMOGLOBIN 11.4 g/dL (14.0-18.0); LYMPHOCYTES # (AUTO) 1.8 (1.0-3.2); LYMPHOCYTES % 17.6 % (18.0-39.1); MEAN CORPUSCULAR HEMOGLOBIN 29.1 pg (28-32); MEAN CORPUSCULAR HGB CONC 32.4 g/dL (31-35); MEAN CORPUSCULAR VOLUME 89.8 fL (81-99); MONOCYTES # (AUTO) 0.9 (0.2-0.8); MONOCYTES % 9.4 % (4.4-11.3); NEUTROPHILS # (AUTO) 6.4 (2.1-6.9); NEUTROPHILS % 64.2 % (38.7-80.0); PLATELET COUNT 305 x10e3/uL (140-360); RED BLOOD COUNT 3.92 x10e6/uL (4.3-5.7); RED CELL DISTRIBUTION WIDTH 13.5 % (11.7-14.4)
[2019-04-21 05:45] LABS: ALANINE AMINOTRANSFERASE 26 IU/L (0-55); ALBUMIN 2.8 g/dL (3.5-5.0); ALBUMIN/GLOBULIN RATIO 0.7 (0.8-2.0); ALKALINE PHOSPHATASE 73 IU/L (40-150); BLOOD UREA NITROGEN 9 mg/dL (7-26); BUN/CREATININE RATIO 9 (6-25); CALCIUM 8.6 mg/dL (8.4-10.2); CARBON DIOXIDE 30 mmol/L (22-29); CHLORIDE 102 mmol/L (98-107); CREATININE, SERUM 0.95 mg/dL (0.72-1.25); EST GLOMERULAR FILTRATION RATE > 60 ML/MIN (60-); GLUCOSE 139 mg/dL (74-118); SODIUM 144 mmol/L (136-145)
[2019-04-21 07:43] VITALS: BP 174/82
[2019-04-21] MEDS: FUROSEMIDE INJ 10 MG/ML 4 ML VIAL IV SCH (08:08)
[2019-04-21] MEDS: ASPIRIN 81 MG CHEW TAB PO SCH (08:08)
[2019-04-21] MEDS: VANCOMYCIN 1GM/NS 250 ML 250 ML IV SCH (08:08)
[2019-04-21] MEDS: GUAIFENESIN 600MG/DEXTROMETHORPHAN 30MG TABSR PO SCH (08:08)
[2019-04-21] MEDS: LISINOPRIL 20 MG TAB PO SCH (08:09)
[2019-04-21] MEDS: METOPROLOL SUCCINATE 50 MG TAB XL PO SCH (08:10)
[2019-04-21] MEDS: OMEGA 3 POLYUNSAT FATTY ACIDS 1000 MG SOFTGEL PO SCH (08:11)
[2019-04-21] MEDS: MULTIVITAMINS/MINERALS TAB PO SCH (08:11)
[2019-04-21] MEDS: BENZONATATE 100 MG CAP PO SCH (08:11)
[2019-04-21] MEDS: [UNRECOGNIZED DRUG - OTHER] PO SCH (08:25)
[2019-04-21] MEDS: (Ubidecarenone (Co Q-10) 1 CAP) PO SCH (08:25)
[2019-04-21 08:33] VITALS: BP 174/82
[2019-04-21] MEDS ORDERED: ONDANSETRON HCL 4 MG ORAL DISINTEGRATING TAB PO PRN (10:30)
[2019-04-21] MEDS ORDERED: POTASSIUM CHLORIDE 10MEQ EA PO ONE ×3 (10:35→13:45)
--- NOTE | 2019-04-21 10:55 | Discharge Summary ---
ADMIT DIAGNOSES: 1. Bilateral pneumonia, likely gram-negative jamison. 2. Coronary artery disease (history of coronary artery stent placement on 4 separate occasions, last one in the LAD in 2015). 3. Type 2 diabetes mellitus. DISCHARGE DIAGNOSES: 1. Sepsis secondary to bilateral pneumonia, likely gram-negative jamison, resolved. 2. Bilateral pneumonia, likely gram-negative jamison, resolving. 3. Anwet-lu-ersctye diastolic heart failure, resolving. 4. Acute pulmonary edema secondary to qkbix-lc-nrxaavz diastolic heart failure, resolved. 5. Coronary artery disease (history of coronary artery stent placement on 4 separate occasions, last one in the LAD in 2015).. 6. Type 2 diabetes mellitus. 7. Hypertensive heart disease. HOSPITAL COURSE: This is a 68-year-old white man, who was initially admitted to [facility] with a diagnosis of bilateral pneumonia, likely gram-negative jamison. He also had underlying diagnosis of coronary artery disease as well as type 2 diabetes. During this hospitalization, the patient experienced acute respiratory failure necessitating endotracheal intubation, secondary to flash pulmonary edema. It was felt that the patient's acute (flash) pulmonary edema was secondary to nxipi-ma-wegotzq diastolic heart failure, exacerbated by his underlying pneumonia. The patient was intubated endotracheally as previous stated, he was transferred intensive care unit. The patient was extubated from the ventilator within 24 hours. In the intensive care unit, the patient was seen by Dr. Ronna Kelley, the sr. director. He was also seen by Dr. Humberto Tinsley, his gleason gear generator. The patient had blood cultures done during this hospitalization, which did not reveal any bacterial growth. The patient underwent echocardiogram during this hospitalization that revealed diastolic heart failure with preserved left ventricular ejection fraction of 55% to 60%.. The patient also had serial cardiac enzymes and electrocardiograms performed during this hospitalization that did not reveal any evidence of acute myocardial ischemia or infarction. CONDITION ON DISCHARGE: Stable. DISCHARGE MEDICATIONS: 1. Augmentin 875 mg one p.o. b.i.d. for 10 days. 2. Aspirin 81 mg daily. 3. Lisinopril 20 mg b.i.d. 4. Metoprolol succinate 50 mg daily. 5. Nitroglycerin 0.4 mg one sublingual every 5 minute p.r.n. chest pain. 6. [place]-3 fish oil 1000 mg daily. 7. Rosuvastatin 40 mg at bedtime. 8. Sitagliptin/metformin one b.i.d. 9. Coenzyme Q10 100 mg daily. 10. Tresiba insulin 100 units daily. 11. He is being discharged home on furosemide 40 mg by mouth daily. FOLLOWUP INSTRUCTIONS: The patient was instructed to follow up with his primary care physician, namely myself, Dr. Placido Ware within 1 week. The patient was instructed to follow up with his gleason gear generator, namely Dr. Humberto Tinsley within 3-4 weeks. MD VALERIA Carney/ARNEL /[id number]
--- NOTE | 2019-04-21 10:59 | NUR ---
IMM letter delivered and explained to pt and at bedside. They verbalized understanding. Pt stated he was ready to go home. Signed copy placed in chart. Copy to pt. CM business card given to pt for any questions/concerns.
[2019-04-21] MEDS: INSULIN REGULAR, HUMAN 100 UNIT/1 ML 3ML VIAL SQ SCH ×2 (11:18→12:07)
[2019-04-21] MEDS ORDERED: AZITHROMYCIN 250 MG TAB PO SCH (21:00)
== END 2019-04-21 14:24 | disposition home or self-care (01) | DRG 871 ==
LOC: ER 19:26 → ERHOLD 21:47 → MED/SURG2 23:56 → ICU 04-17 06:00 → MED/SURG2 04-21 05:15
PROVIDERS: ADMIT Internal Medicine; ATTEND Internal Medicine
PROC: 0BH18EZ Insertion of Endotracheal Airway into Trachea, Via Natural or Artificial Opening Endoscopic (ICD-10-PCS; principal; 2019-04-17)
PROC: 5A1935Z Respiratory Ventilation, Less than 24 Consecutive Hours (ICD-10-PCS; 2019-04-17)
PROC: 02HV33Z Insertion of Infusion Device into Superior Vena Cava, Percutaneous Approach (ICD-10-PCS; 2019-04-17)
DX: A41.50 Gram-negative sepsis, unspecified (principal); J18.9 Pneumonia, unspecified organism; J96.01 Acute respiratory failure with hypoxia; J18.1 Lobar pneumonia, unspecified organism; I50.33 Acute on chronic diastolic (congestive) heart failure; J96.00 Acute respiratory failure, unspecified whether with hypoxia or hypercapnia; I13.0 Hypertensive heart and chronic kidney disease with heart failure and stage 1 through stage 4 chronic kidney disease, or unspecified chronic kidney disease; E11.9 Type 2 diabetes mellitus without complications; I11.0 Hypertensive heart disease with heart failure; I25.10 Atherosclerotic heart disease of native coronary artery without angina pectoris; Z95.5 Presence of coronary angioplasty implant and graft; I25.2 Old myocardial infarction; N18.1 Chronic kidney disease, stage 1; E11.22 Type 2 diabetes mellitus with diabetic chronic kidney disease; Z79.4 Long term (current) use of insulin; N40.0 Benign prostatic hyperplasia without lower urinary tract symptoms; E55.9 Vitamin D deficiency, unspecified
CPT/HCPCS: 36415; 36569; 36600; 70450; 71045; 71260; 74174; 80048; 80053; 80202; 81001; 82550; 82553; 82805; 82947; 82948; 83518; 83605; 83735; 83880; 84100; 84132; 84484; 85014; 85018; 85025; 85379; 85610; 85730; 87040; 87070; 87086; 87205; 87400; 93005; 93041; 93306; 94002; 94003; 94640; 94667; 94668; 96372; 99284; J0330; J0456; J1650; J1817; J1940; J2250; J2405; J2543; J2997; J3370; J3475; J3480; J7030; J7050; J7799; Q9967

== ENCOUNTER 2022-05-26 04:46 | Observation (INO) | payer MEDICARE ==
[~2022-05-26] VITALS: Ht 170.2 cm; Wt 83.5 kg
[2022-05-26] MEDS ORDERED: ONDANSETRON HCL INJ 2MG/ML 2ML 2 MG/ML VIAL IV STA (05:19)
[2022-05-26 05:31] LABS: BASOPHILS % 0.2 % (0.0-1.0); EOSINOPHILS # (AUTO) 0.3 (0.0-0.4); EOSINOPHILS % 2.4 % (0.0-6.0); HEMOGLOBIN 15.8 g/dL (14.0-18.0); LYMPHOCYTES # (AUTO) 1.9 (1.0-3.2); MEAN CORPUSCULAR HEMOGLOBIN 30.3 pg (28-32); MEAN CORPUSCULAR HGB CONC 31.6 g/dL (31-35); MEAN CORPUSCULAR VOLUME 95.8 fL (81-99); MONOCYTES # (AUTO) 1.1 (0.2-0.8); MONOCYTES % 9.3 % (4.4-11.3); NEUTROPHILS # (AUTO) 8.6 (2.1-6.9); NEUTROPHILS % 71.9 % (38.7-80.0); PLATELET COUNT 290 x10e3/uL (140-360); RED BLOOD COUNT 5.22 x10e6/uL (4.3-5.7); RED CELL DISTRIBUTION WIDTH 13.3 % (11.7-14.4)
[2022-05-26 05:47] LABS: CLARITY,URINE CLEAR (CLEAR); COLOR,URINE YELLOW (YELLOW); KETONES,URINE 1+ (NEGATIVE); LEUKOCYTE ESTERASE ,URINE NEGATIVE (NEGATIVE); NITRITE,URINE NEGATIVE (NEGATIVE); PROTEIN,URINE DIPSTICK NEGATIVE (NEGATIVE); URINE UROBILINOGEN 0.2 mg/dL (0.2 - 1)
[2022-05-26 05:47] LABS: ALBUMIN 4.1 g/dL (3.5-5.0); ALBUMIN/GLOBULIN RATIO 1.2 (0.8-2.0); ANION GAP 18.6 mmol/L (8-16); CREATININE, SERUM 1.4 mg/dL (0.72-1.25); POTASSIUM 3.6 mmol/L (3.5-5.1)
[2022-05-26 05:51] LABS: BACTERIA,URINE FEW /HPF; EPITHELIAL CELLS,URINE FEW /LPF; RBC,URINE 0-5 /HPF (0-5); WBC,URINE (MAN) 0-5 /HPF (0-5)
[2022-05-26 05:54] LABS: CREATINE KINASE MB 3.1 ng/mL (0-5.0)
[2022-05-26] MEDS ORDERED: SODIUM CHLORIDE 0.9% 500ML 500 ML IV ONE (06:30)
[2022-05-26] MEDS ORDERED: IOPAMIDOL 370 MG/ML 100 ML INFUS..BTL INJ ONE (06:35)
[2022-05-26] MEDS ORDERED: DEXTROSE 50% SYRINGE 50 ML IV PRN (08:00)
[2022-05-26] MEDS ORDERED: ONDANSETRON HCL INJ 2MG/ML 2ML 2 MG/ML VIAL IV PRN (08:00)
[2022-05-26] MEDS ORDERED: Morphine 2mg Syringe 2 MG/ML SYR IV PRN (08:00)
[2022-05-26 09:43] VITALS: BP 104/62
[2022-05-26 10:00] VITALS: BP 104/62
[2022-05-26] MEDS ORDERED: VITAMIN D3125 MCG (11:11)
[2022-05-26] MEDS ORDERED: TRICOR145 MG PO (11:11)
[2022-05-26] MEDS ORDERED: LASIX40 MG PO (11:11)
[2022-05-26] MEDS ORDERED: METFORMIN HCL500 MG PO (11:11)
[2022-05-26] MEDS ORDERED: JARDIANCE25 MG PO (11:11)
[2022-05-26] MEDS ORDERED: AMLODIPINE BESYL5 MG PO (11:11)
[2022-05-26] MEDS ORDERED: NOVOLOG100 UNIT/1 SC (11:11)
[2022-05-26] MEDS: SODIUM CHLORIDE 0.9% 1000ML 1,000 ML IV SCH ×2 (11:30→22:37)
[2022-05-26 12:29] VITALS: BP 99/57
[2022-05-26] MEDS: INSULIN LISPRO 100 UNIT/1 ML 3ML VIAL SQ SCH ×4 (12:52→21:12)
[2022-05-26 15:23] LABS: CREATINE KINASE MB 2.1 ng/mL (0-5.0)
[2022-05-26 16:32] VITALS: BP 120/59
[2022-05-26 19:39] VITALS: BP 120/59
[2022-05-26 20:00] VITALS: BP 116/61
[2022-05-26] MEDS ORDERED: CRESTOR 10MG PO SCH (21:00)
[2022-05-26] MEDS ORDERED: INSULIN GLARGINE 100 UNITS/ML VIAL SQ SCH (21:00)
[2022-05-27] VITALS: BP 123/62
[2022-05-27 04:00] VITALS: BP 142/76
[2022-05-27 06:00] LABS: BASOPHILS % 0.3 % (0.0-1.0); EOSINOPHILS # (AUTO) 0.5 (0.0-0.4); HEMOGLOBIN 12.3 g/dL (14.0-18.0); LYMPHOCYTES # (AUTO) 1.9 (1.0-3.2); LYMPHOCYTES % 24.2 % (18.0-39.1); MEAN CORPUSCULAR HEMOGLOBIN 30.1 pg (28-32); MEAN CORPUSCULAR HGB CONC 33.2 g/dL (31-35); MEAN CORPUSCULAR VOLUME 90.7 fL (81-99); MONOCYTES # (AUTO) 0.7 (0.2-0.8); MONOCYTES % 9.4 % (4.4-11.3); NEUTROPHILS # (AUTO) 4.7 (2.1-6.9); NEUTROPHILS % 59.7 % (38.7-80.0); PLATELET COUNT 212 x10e3/uL (140-360); RED BLOOD COUNT 4.08 x10e6/uL (4.3-5.7); RED CELL DISTRIBUTION WIDTH 13.6 % (11.7-14.4)
[2022-05-27 06:24] LABS: ALBUMIN 3.1 g/dL (3.5-5.0); ALBUMIN/GLOBULIN RATIO 1.1 (0.8-2.0); ANION GAP 14.4 mmol/L (8-16); CALCIUM 7.8 mg/dL (8.4-10.2); CREATININE, SERUM 0.99 mg/dL (0.72-1.25); POTASSIUM 3.4 mmol/L (3.5-5.1)
[2022-05-27 06:49] LABS: CREATINE KINASE MB 1.6 ng/mL (0-5.0)
[2022-05-27 08:27] VITALS: BP 142/72
[2022-05-27 08:46] VITALS: BP 142/72
[2022-05-27] MEDS ORDERED: FENOFIBRATE 160 MG TAB PO SCH (09:00)
[2022-05-27] MEDS ORDERED: POTASSIUM CHLORIDE 10MEQ EA PO ONE (09:00)
[2022-05-27] MEDS ORDERED: INSULIN LISPRO 100 UNIT/1 ML 3ML VIAL SQ SCH (09:00)
[2022-05-27] MEDS ORDERED: ASPIRIN 81 MG CHEW TAB PO SCH (09:00)
== END 2022-05-27 09:29 | disposition home or self-care (01) ==
LOC: ER 04:55 → ERHOLD 08:14 → MED/SURG 09:40
PROVIDERS: ADMIT Internal Medicine; ATTEND Internal Medicine
DX: K52.9 Noninfective gastroenteritis and colitis, unspecified (principal); N17.9 Acute kidney failure, unspecified; I13.0 Hypertensive heart and chronic kidney disease with heart failure and stage 1 through stage 4 chronic kidney disease, or unspecified chronic kidney disease; I50.32 Chronic diastolic (congestive) heart failure; N18.1 Chronic kidney disease, stage 1; E11.22 Type 2 diabetes mellitus with diabetic chronic kidney disease; Z79.4 Long term (current) use of insulin; I25.10 Atherosclerotic heart disease of native coronary artery without angina pectoris; Z95.5 Presence of coronary angioplasty implant and graft; Z79.899 Other long term (current) drug therapy
CPT/HCPCS: 0223U; 36415 ×2; 71045; 74177; 80053 ×2; 81001; 82550 ×2; 82553 ×2; 82948 ×2; 83690; 84484 ×2; 85025 ×2; 93005; 99284; C9113; G0378 ×2; J0696 ×2; J1815; J2405; J7030; J7040; Q9967

== ENCOUNTER → 2022-06-24 | Day surgery (SDC) | payer MEDICARE ==
[~2022-06-24] MED LIST changes: +AMLODIPINE BESYL5 MG PO; +DEXAMETHASONE SOD PHOS INJ 4 MG/ML SDV ONE; +DEXTROSE 5% 250ML 250 ML IV ONE; +FENTANYL CITRATE/PF 100MCG/2 ML INJ ONE; +GLYCOPYRROLATE INJ 0.2 MG/ML VIAL ONE; +JARDIANCE25 MG PO; +LASIX40 MG PO; +LIDOCAINE HCL 2% LOCAL INJ 5 ML SDV VIAL INJ ONE; +METFORMIN HCL500 MG PO; +METOCLOPRAMIDE HCL 10 MG/2ML VIAL ONE; +NOVOLOG100 UNIT/1 SC; +PHENYLEPHRINE HCL 1% 10 MG/ML VIAL ONE; +POVIDONE IODINE 0.05% 0.05 % ML PO ONE; +PROPOFOL IV EMULSION 10 MG/ML 20 ML VIAL ONE; +TRICOR145 MG PO; +VITAMIN D3125 MCG
[2022-06-24 10:00] VITALS: BP 121/67
== END | disposition home or self-care (01) ==
LOC: OR 06:32
PROVIDERS: ATTEND Internal Medicine Gastroenterology
DX: K29.50 Unspecified chronic gastritis without bleeding (principal); K62.1 Rectal polyp; K25.9 Gastric ulcer, unspecified as acute or chronic, without hemorrhage or perforation; K29.80 Duodenitis without bleeding; K22.89 Other specified disease of esophagus; K62.89 Other specified diseases of anus and rectum; K21.00 Gastro-esophageal reflux disease with esophagitis, without bleeding; K63.89 Other specified diseases of intestine; K62.4 Stenosis of anus and rectum; K64.8 Other hemorrhoids; Z71.3 Dietary counseling and surveillance; E11.9 Type 2 diabetes mellitus without complications; E78.00 Pure hypercholesterolemia, unspecified; I25.2 Old myocardial infarction; Z71.89 Other specified counseling; Z79.4 Long term (current) use of insulin; Z79.82 Long term (current) use of aspirin; Z79.899 Other long term (current) drug therapy; Z68.28 Body mass index [BMI] 28.0-28.9, adult
CPT/HCPCS: 36415; 43239; 45380; 45385; 82948; C9113; J1100; J2001; J2370; J2704; J2765; J3010; J7070

== ENCOUNTER 2023-12-18 01:26 | Emergency (ER) | payer MEDICARE ==
[~2023-12-18] VITALS: Ht 170.2 cm; Wt 80.3 kg
[~2023-12-18 01:26] MED LIST changes: +BACTRIM DS TAB1 EACH PO; +CEPHALEXIN500 MG PO; -DEXAMETHASONE SOD PHOS INJ 4 MG/ML SDV ONE; -DEXTROSE 5% 250ML 250 ML IV ONE; +DOXYCYCLINE HY100 MG PO; -FENTANYL CITRATE/PF 100MCG/2 ML INJ ONE; -GLYCOPYRROLATE INJ 0.2 MG/ML VIAL ONE; -LIDOCAINE HCL 2% LOCAL INJ 5 ML SDV VIAL INJ ONE; -METOCLOPRAMIDE HCL 10 MG/2ML VIAL ONE; -PHENYLEPHRINE HCL 1% 10 MG/ML VIAL ONE; -POVIDONE IODINE 0.05% 0.05 % ML PO ONE; -PROPOFOL IV EMULSION 10 MG/ML 20 ML VIAL ONE
[2023-12-18 01:36] VITALS: TEMP 97.5
[2023-12-18] MEDS ORDERED: ONDANSETRON HCL INJ 2MG/ML 2ML 2 MG/ML VIAL ONE (01:44)
[2023-12-18] MEDS ORDERED: SODIUM CHLORIDE 0.9% 1000ML 1,000 ML ONE (01:44)
[2023-12-18] MEDS: ONDANSETRON HCL INJ 2MG/ML 2ML 2 MG/ML VIAL IV STA (01:59)
[2023-12-18] MEDS: SODIUM CHLORIDE 0.9% 1000ML 1,000 ML IV STA ×2 (01:59→03:22)
[2023-12-18 02:03] VITALS: PULSE 78; RESP 14; O2SAT 100
[2023-12-18 02:07] LABS: BASOPHILS % 0.4 % (0.0-1.0); EOSINOPHILS # (AUTO) 0.3 (0.0-0.4); EOSINOPHILS % 2.6 % (0.0-6.0); HEMATOCRIT 46.8 % (38.2-49.6); HEMOGLOBIN 15.7 g/dL (14.0-18.0); LYMPHOCYTES # (AUTO) 2.1 (1.0-3.2); LYMPHOCYTES % 20.5 % (18.0-39.1); MEAN CORPUSCULAR HEMOGLOBIN 30.5 pg (28-32); MEAN CORPUSCULAR HGB CONC 33.5 g/dL (31-35); MEAN CORPUSCULAR VOLUME 90.9 fL (81-99); MONOCYTES # (AUTO) 0.8 (0.2-0.8); MONOCYTES % 7.7 % (4.4-11.3); NEUTROPHILS # (AUTO) 7.2 (2.1-6.9); NEUTROPHILS % 68.6 % (38.7-80.0); PLATELET COUNT 308 x10e3/uL (140-360); RED BLOOD COUNT 5.15 x10e6/uL (4.3-5.7); RED CELL DISTRIBUTION WIDTH 13.4 % (11.7-14.4); WHITE BLOOD COUNT 10.46 x10e3/uL (4.8-10.8)
[2023-12-18 02:22] LABS: ALBUMIN 4.5 g/dL (3.5-5.0); ALBUMIN/GLOBULIN RATIO 1.4 (0.8-2.0); ANION GAP 18.6 mmol/L (8-16); BILIRUBIN,TOTAL 0.9 mg/dL (0.2-1.2); CALCIUM 9.8 mg/dL (8.4-10.2); CREATININE, SERUM 1.42 mg/dL (0.72-1.25); POTASSIUM 3.6 mmol/L (3.5-5.1); TOTAL PROTEIN 7.7 g/dL (6.5-8.1)
[2023-12-18 02:28] LABS: TROPONIN I 0.015 ng/mL (0-0.300)
[2023-12-18] MEDS ORDERED: IOPAMIDOL 370 MG/ML 100 ML INFUS..BTL INJ ONE (02:32)
[2023-12-18] MEDS ORDERED: ONDANSETRON ODT4 MG PO (03:34)
== END 2023-12-18 04:10 | disposition home or self-care (01) ==
LOC: ER 01:34
DX: R11.2 Nausea with vomiting, unspecified (principal); R10.13 Epigastric pain; Z11.52 Encounter for screening for COVID-19; R94.31 Abnormal electrocardiogram [ECG] [EKG]
CPT/HCPCS: 36415; 74177; 80053; 82550; 82948; 83690; 84484; 85025; 93005; 99284; J2405; J7030; Q9967; U0002

== ENCOUNTER 2023-12-21 23:21 | Observation (INO) | payer MEDICARE ==
[~2023-12-21] VITALS: Ht 170.2 cm; Wt 80.3 kg
[~2023-12-21 23:21] MED LIST changes: +ONDANSETRON ODT4 MG PO
[2023-12-21 23:22] VITALS: TEMP 98.3
[2023-12-21] MEDS: SODIUM CHLORIDE 0.9% 1000ML 1,000 ML IV STA (23:43)
[2023-12-21] MEDS: ONDANSETRON HCL INJ 2MG/ML 2ML 2 MG/ML VIAL IV STA (23:43)
[2023-12-21] MEDS: SODIUM CHLORIDE 0.9% 1000ML 2,000 ML IV SCH (23:44)
[2023-12-21 23:50] LABS: BASOPHILS % 0.4 % (0.0-1.0); EOSINOPHILS # (AUTO) 0.8 (0.0-0.4); EOSINOPHILS % 7.1 % (0.0-6.0); HEMATOCRIT 42.8 % (38.2-49.6); HEMOGLOBIN 14.4 g/dL (14.0-18.0); LYMPHOCYTES # (AUTO) 2.4 (1.0-3.2); LYMPHOCYTES % 22.8 % (18.0-39.1); MEAN CORPUSCULAR HEMOGLOBIN 30.8 pg (28-32); MEAN CORPUSCULAR HGB CONC 33.6 g/dL (31-35); MEAN CORPUSCULAR VOLUME 91.5 fL (81-99); MONOCYTES # (AUTO) 1.2 (0.2-0.8); MONOCYTES % 11.3 % (4.4-11.3); NEUTROPHILS # (AUTO) 6.1 (2.1-6.9); PLATELET COUNT 293 x10e3/uL (140-360); RED BLOOD COUNT 4.68 x10e6/uL (4.3-5.7); RED CELL DISTRIBUTION WIDTH 13.4 % (11.7-14.4); WHITE BLOOD COUNT 10.57 x10e3/uL (4.8-10.8)
[2023-12-22] VITALS (12 sets, daily range): BP systolic 122–140; BP diastolic 59–75; PULSE 62–85; RESP 16–20; TEMP 97.7–98.4; O2SAT 98–100
[2023-12-22 00:04] LABS: ALBUMIN 4.6 g/dL (3.5-5.0); ALBUMIN/GLOBULIN RATIO 1.4 (0.8-2.0); ANION GAP 21.2 mmol/L (8-16); BILIRUBIN,TOTAL 0.7 mg/dL (0.2-1.2); CALCIUM 9.9 mg/dL (8.4-10.2); CREATININE, SERUM 1.42 mg/dL (0.72-1.25); TOTAL PROTEIN 7.8 g/dL (6.5-8.1)
[2023-12-22 00:08] LABS: POTASSIUM 3.2 mmol/L (3.5-5.1)
[2023-12-22 00:10] LABS: TROPONIN I 0.035 ng/mL (0-0.300)
[2023-12-22] MEDS ORDERED: Morphine 4mg INJECTION 4 MG/ML INJ IV PRN (01:45)
[2023-12-22 01:53] LABS: BILIRUBIN,URINE NEGATIVE (NEGATIVE); CLARITY,URINE CLEAR (CLEAR); COLOR,URINE YELLOW (YELLOW); GLUCOSE, URINE NEGATIVE (NEGATIVE); KETONES,URINE NEGATIVE (NEGATIVE); LEUKOCYTE ESTERASE ,URINE NEGATIVE (NEGATIVE); NITRITE,URINE NEGATIVE (NEGATIVE); PH,URINE 5.5 (5 - 7); PROTEIN,URINE DIPSTICK NEGATIVE (NEGATIVE); URINE UROBILINOGEN 0.2 mg/dL (0.2 - 1)
[2023-12-22 02:12] LABS: BACTERIA,URINE FEW /HPF; EPITHELIAL CELLS,URINE FEW /LPF; MUCUS,URINE MANY (RARE); RBC,URINE 0-5 /HPF (0-5); WBC,URINE (MAN) 0-5 /HPF (0-5)
[2023-12-22] MEDS: SODIUM CHLORIDE 0.9% 1000ML 1,000 ML IV SCH (03:18)
[2023-12-22] MEDS ORDERED: ONDANSETRON HCL INJ 2MG/ML 2ML 2 MG/ML VIAL IV PRN (03:30)
[2023-12-22] MEDS ORDERED: insulin (05:24)
[2023-12-22 06:53] LABS: TROPONIN I 0.02 ng/mL (0-0.300)
[2023-12-22] MEDS ORDERED: IOPAMIDOL 370 MG/ML 100 ML INFUS..BTL INJ ONE (09:12)
[2023-12-22] MEDS ORDERED: DEXTROSE 50% SYRINGE 50 ML IV PRN (09:30)
[2023-12-22] MEDS: POTASSIUM CHLORIDE 10MEQ EA PO ONE ×2 (10:29→12:04)
[2023-12-22] MEDS: INSULIN LISPRO 100 UNIT/1 ML 3ML VIAL SQ SCH (12:38)
[2023-12-22 14:52] LABS: TROPONIN I 0.02 ng/mL (0-0.300)
[2023-12-22] MEDS: MAGNESIUM SULFATE 2GM/50ML 50 ML IV ONE (16:30)
[2023-12-23] VITALS: BP 137/74; PULSE 72; RESP 18; TEMP 98.2; O2SAT 98
[2023-12-23 05:13] LABS: BASOPHILS % 0.5 % (0.0-1.0); EOSINOPHILS # (AUTO) 1.3 (0.0-0.4); EOSINOPHILS % 15.7 % (0.0-6.0); HEMATOCRIT 35.7 % (38.2-49.6); HEMOGLOBIN 11.7 g/dL (14.0-18.0); LYMPHOCYTES # (AUTO) 2.8 (1.0-3.2); MEAN CORPUSCULAR HEMOGLOBIN 30.5 pg (28-32); MEAN CORPUSCULAR HGB CONC 32.8 g/dL (31-35); MEAN CORPUSCULAR VOLUME 93.2 fL (81-99); MONOCYTES # (AUTO) 0.8 (0.2-0.8); MONOCYTES % 9.9 % (4.4-11.3); NEUTROPHILS # (AUTO) 3.2 (2.1-6.9); NEUTROPHILS % 39.7 % (38.7-80.0); PLATELET COUNT 246 x10e3/uL (140-360); RED BLOOD COUNT 3.83 x10e6/uL (4.3-5.7); RED CELL DISTRIBUTION WIDTH 13.6 % (11.7-14.4)
[2023-12-23 05:44] LABS: ALBUMIN 3.6 g/dL (3.5-5.0); ALBUMIN/GLOBULIN RATIO 1.6 (0.8-2.0); ANION GAP 12.4 mmol/L (8-16); BILIRUBIN,TOTAL 0.5 mg/dL (0.2-1.2); CALCIUM 8.2 mg/dL (8.4-10.2); CREATININE, SERUM 1.17 mg/dL (0.72-1.25); TOTAL PROTEIN 5.8 g/dL (6.5-8.1)
[2023-12-23 05:50] LABS: POTASSIUM 3.4 mmol/L (3.5-5.1)
[2023-12-23 06:13] VITALS: BP 138/70; PULSE 67; RESP 20; TEMP 98.2; O2SAT 97
[2023-12-23 08:55] VITALS: BP 146/79; PULSE 66; RESP 20; TEMP 98; O2SAT 98
[2023-12-23 09:00] VITALS: BP 146/79; PULSE 66; RESP 20; TEMP 98; O2SAT 98
[2023-12-23] MEDS ORDERED: POTASSIUM CHLORIDE 10MEQ EA PO ONE (10:00)
[2023-12-23 12:21] VITALS: BP 140/79; PULSE 69; RESP 19; TEMP 97.5; O2SAT 95
[2023-12-23] MEDS ORDERED: HUMALOG100 UNIT/1 SC (14:42)
[2023-12-23] MEDS: POTASSIUM CHLORIDE 10MEQ EA PO ONE (15:18)
[2023-12-23 16:05] VITALS: BP 149/95; PULSE 77; RESP 20; TEMP 97.9; O2SAT 98
== END 2023-12-23 16:26 | disposition home or self-care (01) ==
LOC: ER 23:25 → ERHOLD 12-22 01:45 → INTOOBSV 12-22 01:45 → MED/SURG 12-22 02:12
PROVIDERS: ADMIT Internal Medicine; ATTEND Internal Medicine
DX: K52.9 Noninfective gastroenteritis and colitis, unspecified (principal); N17.9 Acute kidney failure, unspecified; R11.2 Nausea with vomiting, unspecified; T50.995A Adverse effect of other drugs, medicaments and biological substances, initial encounter; Y92.009 Unspecified place in unspecified non-institutional (private) residence as the place of occurrence of the external cause; E87.6 Hypokalemia; E83.42 Hypomagnesemia; R80.9 Proteinuria, unspecified; E11.22 Type 2 diabetes mellitus with diabetic chronic kidney disease; I13.0 Hypertensive heart and chronic kidney disease with heart failure and stage 1 through stage 4 chronic kidney disease, or unspecified chronic kidney disease; N18.1 Chronic kidney disease, stage 1; I50.32 Chronic diastolic (congestive) heart failure; Z79.4 Long term (current) use of insulin; I25.10 Atherosclerotic heart disease of native coronary artery without angina pectoris; Z95.5 Presence of coronary angioplasty implant and graft; E78.5 Hyperlipidemia, unspecified; K76.0 Fatty (change of) liver, not elsewhere classified; K40.90 Unilateral inguinal hernia, without obstruction or gangrene, not specified as recurrent; K82.8 Other specified diseases of gallbladder; I25.2 Old myocardial infarction; R94.31 Abnormal electrocardiogram [ECG] [EKG]; Z11.52 Encounter for screening for COVID-19; Z79.899 Other long term (current) drug therapy
CPT/HCPCS: 36415 ×2; 74177; 76705; 78227; 80053 ×2; 81001; 82550 ×2; 83690; 83735 ×2; 84484 ×2; 85025 ×2; 93005; 94799; 99284; A9537; G0378 ×2; J2405; J2470; J2543 ×3; J3475; J7030 ×3; Q9967; U0002